=== PATIENT | female | born 1945 | race Caucasian/White ===

== ENCOUNTER → 2018-06-22 07:20 | Outpatient (CLI) | payer MEDICARE, OTHER, SELFPAY ==
[2018-06-22 14:03] LABS: Hemoglobin A1C 6.5 % (0.0-7.0)
[2018-06-22 14:13] LABS: Alanine Aminotransferase 28 U/L (12-78); Albumin/Globulin Ratio 1.1 (1.1-1.8); Alkaline Phosphatase 97 U/L (46-116); Aspartate Amino Transferase 18 U/L (15-37); Bilirubin,Total 0.4 mg/dL (0.2-1.0); Blood Urea Nitrogen 39 mg/dL (7-18); Calcium 9.4 mg/dL (8.5-10.1); Carbon Dioxide 28 mmol/L (21.0-32.0); Chloride 100 mmol/L (98-107); Chol/HDL Ratio 3.2 (1-3.5); Cholesterol 156 mg/dL (140-200); Creatinine,Serum 1.25 mg/dL (0.55-1.02); Estimated Glomerular Filt Rate 42 ml/min (>60); GFR (African American) 51 ML/MIN (>60); Globulin 3.6 gm/dl (1.3-3.2); Glucose 145 mg/dL (74-106); HDL Cholesterol 49 mg/dL (29-89); LDL Cholesterol 78 mg/dL (0-130); Sodium 139 mmol/L (136-145); Total Protein,Serum 7.6 gm/dL (6.4-8.2); Triglycerides 144 mg/dL (30-200); VLDL Cholesterol 29 mg/dL (0-40)
== END ==
PROVIDERS: PCP Internal Medicine Adolescent Medicine; Visit Provider Internal Medicine Adolescent Medicine
DX: E11.9 Type 2 diabetes mellitus without complications (principal); E78.5 Hyperlipidemia, unspecified
CPT/HCPCS: 36415; 80053; 80061; 83036

== ENCOUNTER 2018-09-10 22:11 | Observation (INO) ==
--- NOTE | 2018-09-10 22:58 | Emergency Department Note ---
ED Disposition Clinical Impression: Fracture dislocation of left ankle joint Qualifiers: Encounter type: initial encounter Fracture type: closed Qualified Code(s): S82.892A - Other fracture of left lower leg, initial encounter for closed fracture Disposition: Admitted as Observation Condition on Discharge: Good - Critical Care Critical Care Time: No Attestation: On 09/10/18, the high probability of a clinically significant, sudden or life threatening deterioration of the following system(s) required my full and direct attention, intervention and personal management. The time I documented below is in addition to time spent performing reported procedures but includes the following listed in this critical care notation. Medical Decision Making - [place]ilo Inquiry Pt receiving controlled substance: No Vital Signs: 09/10/18 22:28 09/10/18 22:49 Temperature 97.7 F Temperature Source Oral Pulse Rate [Right] 105 H 70 Respiratory Rate 18 12 Blood Pressure [Right Arm] 163/91 H 158/84 H Blood Pressure Mean [Right Arm] 115 108 Blood Pressure Source [Right Arm] Automatic Cuff Automatic Cuff Blood Pressure Position [Right Arm] Supine Supine 02 Sat by Pulse Oximetry 100 100 Oxygen Delivery Method Room Air Nasal Cannula Oxygen Flow Rate (LPM) 2 Orders (Tests/Meds): ED MEDICATIONS Discontinued Medications Generic Name Dose Route Start Last Admin Trade Name Freq PRN Reason Stop Dose Admin Fentanyl Citrate 25 mcg 09/10/18 22:27 09/10/18 22:28 Fentanyl 100mcg/2ml Vial IV 09/10/18 22:28 25 mcg ONCE ONE Administration Midazolam HCl 2 mg 09/10/18 22:27 09/10/18 22:28 Midazolam 2mg/2ml Vial IV 09/10/18 22:28 2 mg ONCE ONE Administration ORDERS Category Date Time Status Pelvis XR 1-2 views [XR pelvis 1-2V] Stat Exams 09/10/18 22:21 Taken XR ankle LT 2V Stat Exams 09/10/18 22:17 Taken XR ankle LT 2V Stat Exams 09/10/18 22:22 Taken XR chest portable Stat Exams 09/10/18 22:21 Taken Complete Blood Count Auto Diff Stat Lab 09/10/18 22:26 Ordered Comprehensive Metabolic Panel Stat Lab 09/10/18 22:26 Ordered - Radiology Data #1 Image(s): Chest, Pelvis, Ankle Image Reviewed: Yes I reviewed the patient's radiology image Preliminary Findings: Abnormal (fx/dislocation) - ECG Data Tracing #1 Normal Sinus Rhythm: Yes Ischemic changes: non-specific ST-T wave changes - Physician Consults Physician Consulted: noe Reason -: Admission Additional Consult: zain Reason -: Pt condition, Orthopedic Eval/Care Lower Extremity Injury HPI - General Chief Complaint: Extremity Injury, Lower Stated Complaint: Fall w/ left ankle injury Time Seen by Provider: 09/10/18 22:30 Mode of Arrival: EMS Source of Information: Patient, Spouse, Relative, EMS, Medical Record Limitations: Physical Limitations Description of Symptoms (Recalled from ER Triage Doc. by RN): Pt states she fell off last step and rolled left ankle - History of Present Illness HPI Narrative: acute injury lt ankle after missed last step on basement - no other c/o MD complaint: ankle injury Onset (ago): hour(s) Injury: Left: ankle Type of Injury: other (fall) Place: home Severity: moderate Exacerbating factors: nothing Context: fall Associated symptoms: snap/pop sensation, unable to bear weight Other symptoms: none Treatments prior to arrival: splint - Related Data Allergies Allergy/AdvReac Type Severity Reaction Status Date / Time No Known Allergies Allergy Verified 09/10/18 22:16 [facility] History - Hepatitis A Screen Drug use history?: No High risk sexual behaviors?: No History of sexually transmitted infection?: No Currently employed?: No Childcare worker?: No Do you have indoor plumbing?: Yes Do you have electricity?: Yes Attestation statement:: This patient has been screened for Hepatitis A risk factors. I have reviewed the patient's past medical history: Yes Medical History: Denies:: Diabetes Mellitus Type 1, Diabetes Mellitus Type 2 - Social History Alcohol Intake: never Occupational Status: retired - Psychiatric History Expresses thoughts of harming self/others: None Suicide Plan Description: No Plan ROS Obtained: Yes All systems reviewed & no additional complaints - Constitutional Constitutional: Denies fever(s) - Eyes Eyes: Denies change in vision - ENT Ears, Nose, Mouth, and Throat: Denies sore throat - Cardiovascular Cardiovascular: Denies chest pain - Respiratory Respiratory: No cough - Gastrointestinal Gastrointestingal: Denies: abdominal pain - Genitourinary Female Genitourinary: Denies hematuria - Musculoskeletal Musculoskeletal: Reports as per HPI, Reports joint pain, Reports joint swelling, Reports limited range of motion, Denies neck pain - Integumentary/Breasts Skin/Breast: Denies rash - Neurologic Neurologic: Denies seizure-like activity Physical Exam - General General appearance: alert, in no apparent distress - Head Head exam: normocephalic - Eye Eye exam: Present: PERRL, EOMI - ENT ENT exam: Present: mucous membranes moist - Neck Neck exam: Present: trachea midline - Respiratory Respiratory exam: Present: normal lung sounds bilaterally - Cardiovascular Cardiovascular exam: Present: regular rate, systolic murmur - Abdominal Exam Abdominal exam: Present: soft. Absent: tenderness - Expanded Lower Extremity Exam Left Ankle exam: Present: tenderness, swelling, deformity, dislocation. Absent: full ROM Neurovascular/Tendon exam: Present: normal capillary refill. Absent: pulse deficit - Neurological Exam Neurological exam: Present: alert, oriented X3, CN II-XII intact - Psychiatric Psychiatric exam: Present: normal affect - Skin Skin exam: Absent: rash Procedures - Orthopedic Joint Reduction Joint #1 Time Out Performed: Yes Side: left Joint Reduction Location: ankle Analgesia: procedural sedation Technique used: traction/counter-traction Post-reduction neuro exam: intact Post-reduction vascular: intact Post Reduction X-Ray Obtained: Yes Post Reduction X-Ray Results: reduced Splint Applied: Yes Patient Tolerated Procedure: well - Procedural Sedation ASA Class: II Time of Last PO Intake: 18:00 Preparation: inspector electromechanical applied, pulse oximeter, supplemental O2 applied, suction/airway equipment at bedside, IV secured Fentanyl: IV Fentanyl dose (mcg): 25 Midazolam: IV Midazolam dose (mg): 2 Patient Tolerated Procedure: well Complications: none
[2018-09-10 23:38] LABS: Basophils # 0.1 K/mm3 (0-0.2); Basophils % 0.5 % (0.1-2.0); Eosinophils # 0.1 K/mm3 (0.0-0.4); Eosinophils % 0.8 % (0.1-12.0); Hematocrit 37.5 % (37.0-47.0); Hemoglobin 12.6 g/dL (12.2-16.2); Lymphocytes # 1.4 K/mm3 (0.7-4.5); Lymphocytes % 13.7 % (10-50); Mean Corpuscular HGB Conc 33.5 g/dL (31.8-35.4); Mean Corpuscular Hemoglobin 30.7 pg (27.0-31.2); Mean Corpuscular Volume 91.6 fl (81-99); Mean Platelet Volume 7.1 fl (7.4-10.4); Monocytes # 0.5 K/mm3 (0.1-1.0); Monocytes % 4.6 % (1.7-9.3); Neutrophils # 8.5 K/mm3 (1.8-7.8); Neutrophils % 80.4 % (37.0-80.0); Platelet Count 254 K/mm3 (142-424); White Blood Count 10.6 K/mm3 (4.8-10.8)
[2018-09-10 23:52] LABS: Albumin Level 3.8 gm/dL (3.4-5.0); Albumin/Globulin Ratio 1.1 (1.1-1.8); Anion Gap 13.1 mEq/L (5-15); Bilirubin,Total 0.4 mg/dL (0.2-1.0); Calcium 8.6 mg/dL (8.5-10.1); Globulin 3.6 gm/dl (1.3-3.2); Potassium 4.1 mmoL/L (3.5-5.1); Total Protein,Serum 7.4 gm/dL (6.4-8.2)
[2018-09-10 23:55] LABS: Activated Partial Thrombo Time 24.7 seconds (23.6-34.0); INR 1.01 (0.9-1.1); Prothrombin Time 10.4 seconds (9.4-11.8)
--- NOTE | 2018-09-11 09:02 | History & Physical Report ---
*Admission Date: 09/10/18 *Chief complaint: Fall at home with left ankle fracture *History of present illness: 73-year-old white female with multiple medical problems including osteoporosis, kyphosis and others detailed in her past medical history who was carrying groceries downstairs last night after coming in from the car and slipped on the lower step of her basement steps and fell. She was unable to bear weight on the left ankle, brought to the emergency department and work-up revealed significant left ankle/distal tib-fib fracture. Please see orthopedic notes for details of this. Patient admitted for pain control, orthopedic evaluation and planned surgical procedure. In addition, patient was noted to have orthostatic blood pressure changes in the ER and on second floor with systolic blood pressure ranging from 130 down to 105 on repetitive exams. [facility] History I have reviewed the patient's past medical history: Yes Medical History: Reports:: Cancer (LEFT BREAST CANCER), Hyperlipidemia, Hypertension Denies:: Diabetes Mellitus Type 1, Diabetes Mellitus Type 2, MRSA *Have you ever received a pneumonia vaccine?: Yes *Have you received a flu vaccine this season?: Yes Other Medical History: Reports: Chemotherapy, Sinus Problems Laterality Cases: Left: Lumpectomy Other Surgeries: Yes: Colonoscopy, Hysterectomy-Total Amputation: No Fractures: No - *Social History Educational Level: Attended College Alcohol Intake: never *Occupational Status:: retired Housing: house Household Members: spouse *Travel in the last 8 weeks: None - Psychiatric History Expresses thoughts of harming self/others: None Suicide Plan Description: No Plan Family Hx:: Cancer Review of Systems - Review of Systems Review of systems:: pertinent systems reviewed and negative unless documented below - Constitutional Denies anorexia, Denies body ache(s) - Eyes Denies blind spots, Denies blurry vision - ENT Reports poor balance, Reports dizziness, Denies abnormal hearing - *Cardiovascular Denies chest pain, Denies chest pain at rest, Denies shortness of breath, Denies irregular heart rhythm - *Respiratory Denies change in phlegm color, Denies chest congestion, Denies shortness of breath with activity - *Gastrointestinal Denies abdominal pain, Denies change in stools, Denies coffee ground vomit - *Musculoskeletal Reports abnormal walking, Reports joint pain, Reports back pain, Denies decreased muscle mass - Integumentary/Breasts Denies acne, Denies hair loss - *Neurologic Reports abnormal walking, Denies seizure-like activity Meds Home Medications Medication Instructions Recorded Confirmed Type Duloxetine HCl [Cymbalta] 60 mg PO DAILY 09/10/18 09/11/18 History Lisinopril/Hydrochlorothiazide 1 tab PO DAILY 09/10/18 09/11/18 History [Lisinopril-Hctz 10-12.5 mg Tab] Meloxicam 15 mg PO DAILY 09/10/18 09/11/18 History Metformin HCl [Glucophage Xr] 500 mg PO DAILY 09/10/18 09/11/18 History Pravastatin Sodium [Pravachol] 20 mg PO DAILY 09/10/18 09/11/18 History Omeprazole [Omeprazole 20mg Tab] 20 mg PO DAILY 09/11/18 09/11/18 History Allergies Allergy/AdvReac Type Severity Reaction Status Date / Time No Known Allergies Allergy Verified 09/10/18 22:16 Exam Vital signs and Labs for Last 24 Hours: Temp Pulse Resp BP Pulse Ox 97.5 F L 90 16 107/57 L 94 L 09/11/18 08:00 09/11/18 08:00 09/11/18 08:00 09/11/18 08:00 09/11/18 08:00 Laboratory Results - last 24 hr 09/10/18 23:30: WBC 10.6, RBC 4.10 L, Hgb 12.6, Hct 37.5, MCV 91.6, MCH 30.7, MCHC 33.5, RDW 13.0, Plt Count 254, MPV 7.1 L, Neut % (Auto) 80.4 H, Lymph % (Auto) 13.7, [place] % (Auto) 4.6, Eos % (Auto) 0.8, Baso % (Auto) 0.5, Neut # (Auto) 8.5 H, Lymph # (Auto) 1.4, [place] # (Auto) 0.5, Eos # (Auto) 0.1, Baso # (Auto) 0.1 09/10/18 23:30: Sodium 137, Potassium 4.1, Chloride 101, Carbon Dioxide 27, Anion Gap 13.1, BUN 46 H, Creatinine 1.24 H, Estimated Creat Clear 44, Estimated GFR 42 L, Est GFR ( Amer) 51 L, Glucose 123 H, Calcium 8.6, Total Bilirubin 0.4, AST 19, ALT 31, Alkaline Phosphatase 102, Total Protein 7.4, Albumin 3.8, Globulin 3.6 H, Albumin/Globulin Ratio 1.1 09/10/18 23:30: PT 10.4, INR 1.01, APTT 24.7 09/11/18 06:15: POC Glucose 128 H I & O for Last 24 hours: Intake & Output 09/08/18 09/09/18 09/10/18 09/11/18 11:59 11:59 11:59 11:59 Intake Total 251 / 251 Balance 251 / 251 Weight 154 lb Narrative: Pleasant, talkative. Oropharynx clear. Slightly dry. Neurologic exam intact. Patient is alert. Anterior lung mendoza clear, heart rate regular. Abdomen soft and nontender. No edema and extremities except for the left lower extremity which is in a splint. Please see orthopedic exam for details. Assessment and Plan (1) Orthostatic hypotension Current visit: Yes Status: Acute Category: Medical Code(s): I95.1 - Orthostatic hypotension Follow closely. IV fluids. Significant comorbid condition. (2) History of breast cancer Current visit: Yes Status: Acute Category: Medical Code(s): Z85.3 - Personal history of malignant neoplasm of breast Has been disease-free for a while. However this condition complicates all aspects of her care (3) Fracture dislocation of left ankle joint Current visit: Yes Status: Acute Qualifiers: Encounter type: initial encounter Fracture type: closed Qualified Code(s): S82.892A - Other fracture of left lower leg, initial encounter for closed fracture Category: Medical Code(s): S82.892A - Other fracture of left lower leg, initial encounter for closed fracture Orthopedic evaluation. Plan for ORIF today if suitable. (4) Hypertension, essential Current visit: Yes Status: Acute Category: Medical Code(s): I10 - Essential (primary) hypertension (5) Diabetes mellitus type 2, noninsulin dependent Current visit: Yes Status: Acute Category: Medical Code(s): E11.9 - Type 2 diabetes mellitus without complications Close observation in hospital. Complicates her care.
--- NOTE | 2018-09-11 09:27 | Consult Report ---
*Admission Date: 09/10/18 *Chief complaint: Left ankle fracture *History of present illness: Mrs. Askew is a very pleasant 73-year-old lady who sustained an injury to her left ankle last night. She was bringing groceries down the stairs into her basement to place in the deep freeze, when she accidentally missed the bottom stair and rolled her left ankle and fell to the ground. She had immediate pain, deformity and swelling and was unable to bear weight on this leg. She was seen immediately in the emergency room at [facility], where a fracturedislocation was identified and promptly reduced under sedation by ER staff. I was then notified by the ER physician about the patient's injury and that, while the reduction improved the alignment of the ankle, it was a very unstable fracture and prompt fixation may be warranted. The patient has a past medical history of breast cancer, hypertension and hyperlipidemia. She has had an elevated creatinine and elevated blood glucose since admission, with an episode of orthostasis as well. She lives at home with her , who is a few years older than her, and while independently ambulatory, he has significant kyphosis and memory issues, so support may be difficult after discharge. She reports pain in the L ankle currently, but no numbness or tingling in the toes. No LOC reported during the fall, and no pain is reported in any other joint or body part. Denies chest pain, shortness of breath, abdominal pain. Review of Systems - Review of Systems Review of systems:: pertinent systems reviewed and negative unless documented below - *Neurologic Reports abnormal walking, Reports unsteadiness, Reports dizziness, Denies abnormal hearing, Denies seizure-like activity [facility] History I have reviewed the patient's past medical history: Yes Medical History: Reports:: Cancer (LEFT BREAST CANCER), Hyperlipidemia, Hypertension Denies:: Diabetes Mellitus Type 1, Diabetes Mellitus Type 2, MRSA *Have you ever received a pneumonia vaccine?: Yes *Have you received a flu vaccine this season?: Yes Other Medical History: Reports: Chemotherapy, Sinus Problems Laterality Cases: Left: Lumpectomy Other Surgeries: Yes: Colonoscopy, Hysterectomy-Total Amputation: No Fractures: No - *Social History Educational Level: Attended College Alcohol Intake: never *Occupational Status:: retired Housing: house Household Members: spouse *Travel in the last 8 weeks: None - Psychiatric History Expresses thoughts of harming self/others: None Suicide Plan Description: No Plan Family Hx:: Cancer Meds Home Medications Medication Instructions Recorded Confirmed Type Duloxetine HCl [Cymbalta] 60 mg PO DAILY 09/10/18 09/11/18 History Lisinopril/Hydrochlorothiazide 1 tab PO DAILY 09/10/18 09/11/18 History [Lisinopril-Hctz 10-12.5 mg Tab] Meloxicam 15 mg PO DAILY 09/10/18 09/11/18 History Metformin HCl [Glucophage Xr] 500 mg PO DAILY 09/10/18 09/11/18 History Pravastatin Sodium [Pravachol] 20 mg PO DAILY 09/10/18 09/11/18 History Omeprazole [Omeprazole 20mg Tab] 20 mg PO DAILY 09/11/18 09/11/18 History Allergies Allergy/AdvReac Type Severity Reaction Status Date / Time No Known Allergies Allergy Verified 09/10/18 22:16 Exam Vital signs and Labs for Last 24 Hours: Temp Pulse Resp BP Pulse Ox 97.5 F L 90 16 107/57 L 94 L 09/11/18 08:00 09/11/18 08:00 09/11/18 08:00 09/11/18 08:00 09/11/18 08:00 Laboratory Results - last 24 hr 09/10/18 23:30: WBC 10.6, RBC 4.10 L, Hgb 12.6, Hct 37.5, MCV 91.6, MCH 30.7, MCHC 33.5, RDW 13.0, Plt Count 254, MPV 7.1 L, Neut % (Auto) 80.4 H, Lymph % (Auto) 13.7, [place] % (Auto) 4.6, Eos % (Auto) 0.8, Baso % (Auto) 0.5, Neut # (Auto) 8.5 H, Lymph # (Auto) 1.4, [place] # (Auto) 0.5, Eos # (Auto) 0.1, Baso # (Auto) 0.1 09/10/18 23:30: Sodium 137, Potassium 4.1, Chloride 101, Carbon Dioxide 27, Anion Gap 13.1, BUN 46 H, Creatinine 1.24 H, Estimated Creat Clear 44, Estimated GFR 42 L, Est GFR ( Amer) 51 L, Glucose 123 H, Calcium 8.6, Total Bilirubin 0.4, AST 19, ALT 31, Alkaline Phosphatase 102, Total Protein 7.4, Albumin 3.8, Globulin 3.6 H, Albumin/Globulin Ratio 1.1 09/10/18 23:30: PT 10.4, INR 1.01, APTT 24.7 09/11/18 06:15: POC Glucose 128 H I & O for Last 24 hours: Intake & Output 09/08/18 09/09/18 09/10/18 09/11/18 11:59 11:59 11:59 11:59 Intake Total 251 / 251 Balance 251 / 251 Weight 154 lb - Constitutional no acute distress, average body habitus - *Routine HEENT Exam Head: Present: normocephalic Eye: Present: EOMI ENT: Present: mucous membranes moist - *Routine Respiratory Exam Present: CTA bilaterally. Absent: accessory muscle use, wheezes, crackles - *Routine Cardiovascular Exam Present: RRR - *Routine Abdominal Exam Present: soft. Absent: tenderness, distended - *Routine Extremities Exam Comments: L ankle splinted, well-padded and intact; elevated on 3 pillows exposed toes pink, warm with brisk capillary refill no tenderness L calf, no pain L knee with full ROM SILT distally across all toes able to wiggle all toes, EHL intact - *Routine Skin Exam Present: intact. Absent: erythema, ecchymosis - *Routine Neurological Exam Present: alert, oriented X3. Absent: sensory deficit, motor deficit, altered mental status Results - Labs Result Diagrams: 09/10/18 23:30 09/10/18 23:30 Labs: Abnormal lab results 09/10/18 09/10/18 09/11/18 Range/Units 23:30 23:30 06:15 RBC 4.10 L (4.20-5.40) M/mm3 MPV 7.1 L (7.4-10.4) fl Neut % (Auto) 80.4 H (37.0-80.0) % Neut # (Auto) 8.5 H (1.8-7.8) K/mm3 BUN 46 H (7-18) mg/dL Creatinine 1.24 H (0.55-1.02) mg/dL Estimated GFR 42 L (>60) ml/min Est GFR ( Amer) 51 L (>60) ML/MIN Glucose 123 H (74-106) mg/dL POC Glucose 128 H (70-110) Globulin 3.6 H (1.3-3.2) gm/dl H & H 09/10/18 Range/Units 23:30 Hgb 12.6 (12.2-16.2) g/dL Hct 37.5 (37.0-47.0) % Coagulation 09/10/18 Range/Units 23:30 INR 1.01 (0.9-1.1) All other labs normal. - Diagnostic results Ankle/Foot x-ray: image reviewed (bimalleolar fracture-dislocation L ankle; reduced by ER, alignment improved on post-reduction films but talus not well- centered within mortise, remains malreduced ) Assessment and Plan (1) Orthostatic hypotension Current visit: Yes Status: Acute Category: Medical Code(s): I95.1 - Orthostatic hypotension (2) History of breast cancer Current visit: Yes Status: Acute Category: Medical Code(s): Z85.3 - Personal history of malignant neoplasm of breast (3) Fracture dislocation of left ankle joint Current visit: Yes Status: Acute Qualifiers: Encounter type: initial encounter Fracture type: closed Qualified Code(s ): S82.892A - Other fracture of left lower leg, initial encounter for closed fracture Category: Medical Code(s): S82.892A - Other fracture of left lower leg, initial encounter for closed fracture (4) Hypertension, essential Current visit: Yes Status: Acute Category: Medical Code(s): I10 - Essential (primary) hypertension (5) Diabetes mellitus type 2, noninsulin dependent Current visit: Yes Status: Acute Category: Medical Code(s): E11.9 - Type 2 diabetes mellitus without complications - Assessment and plan all Dx Assessment and Plan for all problems:: 73yo F with L ankle fracture-dislocation, reduced by ER staff last night -- plan to take patient to OR this morning, where splint will be removed. If soft tissues allow, will plan ORIF. If too swollen and/or ecchymosis present over location of planned incisions, will performed closed reduction under fluoroscopy and apply well-padded splint, with plans to fix in 5-7 days. -- the procedure (both options) was discussed with the patient, her , and her daughter; all vocalized understanding -- 1g ancef ordered strength and conditioning coach to OR in anticipation of ORIF -- will keep patient in-house afterwards regardless, for PT and dispo planning -- patient was seen in conjunction with Dr. Kemp
--- NOTE | 2018-09-11 10:45 | Progress Note ---
[facility] Anesthesia Checklist - Structural Data Admitted From: Inpatient Planned Operative Procedure/s: orif l ankle Consent for Planned Operative Procedure(s) Verified: Yes - Airway Assessment C-Spine Mobility Assessed: Yes TMJ Mobility Assessed: Yes Dentition: Good Dentition - Neurological Assessment Level of Consciousness: Awake, Alert, Appropriate - Anesthesia Plan Anesthesia Risk discussed: Yes Anesthesia Plan: Verified ASA Class: II Anesthesia Type: General [facility] History I have reviewed the patient's past medical history: Yes Medical History: Reports:: Cancer (LEFT BREAST CANCER), Hyperlipidemia, Hypertension Denies:: Diabetes Mellitus Type 1, Diabetes Mellitus Type 2, MRSA *Have you ever received a pneumonia vaccine?: Yes *Have you received a flu vaccine this season?: Yes Other Medical History: Reports: Chemotherapy, Sinus Problems Laterality Cases: Left: Lumpectomy Other Surgeries: Yes: Colonoscopy, Hysterectomy-Total Amputation: No Fractures: No - *Social History Educational Level: Attended College Alcohol Intake: never *Occupational Status:: retired Housing: house Household Members: spouse *Travel in the last 8 weeks: None - Psychiatric History Expresses thoughts of harming self/others: None Suicide Plan Description: No Plan Family Hx:: Cancer
--- NOTE | 2018-09-11 10:45 | Progress Note ---
[facility] Anesthesia Record Part I Intake, IV Amount: 400 Estimated blood loss (mL): 0 Urine output (mL): 50 Blood Pressure: 138/71 SaO2: 96 Pulse Rate: 84 Respiratory Rate: 12 Temperature: 98.9 F Patient is:: Awake, Stable Stable to PACU at:: 10:40
--- NOTE | 2018-09-11 10:46 | Progress Note ---
[facility] Anesthesia Record Part II Discharge Time: 11:10 Destination: floor PACU nurse assessment reviewed?: Yes Patient Condition:: Good Anesthesia Complications:: None Swallowing reflex intact?: Yes Cyanosis?: No
--- NOTE | 2018-09-11 10:54 | Operative Note ---
Date of procedure: 09/11/18 Pre-op Diagnosis:: L ankle bimalleolar fracture Post-op Diagnosis:: L ankle bimalleolar fracture Procedure performed:: closed reduction and splinting L ankle fracture Surgeon:: Leslee Kohler MD Courier(s):: Cici Lima CST SEATER ASSEMBLER:: Joseph Gutierrez Anesthesia: GETA Estimated blood loss (mL): 0 Clinical Note:: 73-year-old F who sustained an injury to her left ankle last night. She was bringing groceries down the stairs into her basement to place in the deep freeze, when she accidentally missed the bottom stair and rolled her left ankle and fell to the ground. She had immediate pain, deformity and swelling and was unable to bear weight on this leg. She was seen immediately in the emergency room at [facility], where a fracturedislocation was identified and promptly reduced under sedation by ER staff. I was then notified by the ER physician about the patient's injury and that, while the reduction improved the alignment of the ankle, it was a very unstable fracture and prompt fixation may be warranted. The patient has a past medical history of breast cancer, hypertension and hyperlipidemia. She has had an elevated creatinine and elevated blood glucose since admission, with an episode of orthostasis as well. She lives at home with her , who is a few years older than her, and while independently ambulatory, he has significant kyphosis and memory issues, so support may be difficult after discharge. She reports pain in the L ankle currently, but no numbness or tingling in the toes. No LOC reported during the fall, and no pain is reported in any other joint or body part. Denies chest pain, shortness of breath, abdominal pain. Operative findings:: Mild ecchymosis medially, would be safe from planned incision; small blister laterally/distally Urine very hazy/cloudy, almost purulent appearing when juares inserted Operative note:: The patient was identified in pre-operative holding and the left leg signed by myself. Consent was verified with the patient and all questions answered. She was then taken to the operating room and placed supine on the OR table. General anesthesia was induced and timeout performed, identifying the correct patient, correct procedure, and correct site. The splint was removed from the LLE and skin examined. There was a small area of ecchymosis over the anteromedial ankle, that would likely avoid the planned incision line. A small blister was seen laterally/distally, at the distal edge of the planned lateral incision. Overall, soft tissue swelling was minimal and ORIF possible. However, a juares was placed for the procedure, and the urine that was returned was extremely hazy/opaque, almost purulent appearing. The decision was made to hold off on ORIF so as not to risk seeding hardware. The c-arm was brought in and closed reduction performed; a well-padded plaster splint was p laced, with a posterior splint + stirrup. The patient was extubated and taken to PACU, where blood cultures were taken x2. The urine from the juares was sent for stat UA and culture. After discussion with the patient's daughter, we decided to remove the juares; she has been doing well with a bedpan, though output has been low, and she would prefer not exacerbating/increasing the infection with an in dwelling catheter. Juares was removed in PACU. I discussed her case with Dr. Kemp, and we have agreed to start her on ceftriaxone 1g q24hr, to be started after blood cultures drawn. The L ankle will be elevated and we will try to fix the fracture Wednesday09/13/2018 if possible. Tourniquet time (min): 0 Condition: stable Disposition: PACU Specimens:: none Complications:: none
[2018-09-11 11:31] LABS: Appearance,Urine TURBID (Clear); Bilirubin,Urine Negative (Negative); Blood, Urine 3+ (Negative); Color,Urine YELLOW (Yellow); Glucose,Urine (UA) Negative (Negative); Ketones,Urine TRACE (Negative); Leukocyte Esterase,Urine 3+ (Negative); Microscopic, Urine URINE MICROSCOPIC (MICROSCOPIC); Protein,Urine 2+ (Negative); Specific Gravity, Urine >= 1.030 (1.005-1.030); Urobilinogen,Urine 0.2 EU/dl (0.2)
[2018-09-11 11:32] LABS: Bacteria,Urine 4+ /lpf; RBC,Urine TNTC #/hpf (0-3); Squamous Epithelial Cell,Urine TNTC #/hpf (0-5); WBC,Urine TNTC #/hpf (0-3)
--- NOTE | 2018-09-11 11:33 | Pharmacy Consult Notes ---
[facility] Pharmacy VTE Monitoring - Patient Demographics Admission date: 09/10/18 Report Date: 09/11/18 Time: 11:33 Allergies/Adverse Reactions: Patient Allergies No Known Allergies Allergy (Verified 09/10/18 22:16) Height: 1.63 m Weight: 69.853 kg Patient Problems: Current Active Problems (Updated 09/11/18 @ 09:06 by Jacky Kemp MD) Fracture dislocation of left ankle joint (Acute) Orthostatic hypotension (Acute) History of breast cancer (Acute) Hypertension, essential (Acute) Diabetes mellitus type 2, noninsulin dependent (Acute) - VTE Risk Labs: VTE Related Lab Results Hgb 12.6 g/dL (12.2-16.2) 09/10/18 23:30 Hct 37.5 % (37.0-47.0) 09/10/18 23:30 Plt Count 254 K/mm3 (142-424) 09/10/18 23:30 PT 10.4 seconds (9.4-11.8) 09/10/18 23:30 INR 1.01 (0.9-1.1) 09/10/18 23:30 APTT 24.7 seconds (23.6-34.0) 09/10/18 23:30 BUN 46 mg/dL (7-18) H 09/10/18 23:30 Creatinine 1.24 mg/dL (0.55-1.02) H 09/10/18 23:30 Estimated Creat Clear 44 mL/min (50-200) 09/10/18 23:30 VTE Score: 4 VTE Risk Level: Low Risk - Prophylaxis VTE Prophylaxis Ordered?: Yes Types of VTE Prophylaxis: IPCS Thigh High (ON UN-INJURED LEG ONLY) Location of Applied Device: Right Leg
--- NOTE | 2018-09-12 08:49 | Progress Note ---
Internal Medicine - PN: Subj *Date: 09/12/18 *Time: 08:45 Interval history: Events of yesterday noted. Patient went to the OR for possible ORIF of fracture but urinalysis and urine were noted to be markedly abnormal. Ankle was reduced under fluoroscopy and good reduction was obtained per orth opedics. Patient now on antibiotics. She continues to deny urinary symptoms of any kind, denies fever. Reports that she feels okay except "my breakfast does not have enough sugar in it." Exam Vital signs and Labs for Last 24 Hours: Temp Pulse Resp BP Pulse Ox 98.4 F 96 H 17 141/73 H 96 09/12/18 04:00 09/12/18 04:00 09/12/18 04:00 09/12/18 04:00 09/12/18 04:00 Laboratory Results - last 24 hr 09/11/18 10:57: Urine Color Yellow, Urine Appearance Turbid, Urine pH 6.0, Ur Specific [place] >= 1.030, Urine Protein 2+, Urine Glucose (UA) Negative, Urine Ketones Trace, Urine Blood 3+, Urine Nitrate Positive, Urine Bilirubin Negative, Urine Urobilinogen 0.2, Ur Leukocyte Esterase 3+ A, Urine RBC Tntc, Urine WBC Tntc, Ur Squamous Epith Cells Tntc, Urine Bacteria 4+ 09/11/18 16:01: POC Glucose 139 H 09/11/18 21:50: POC Glucose 129 H 09/12/18 06:25: POC Glucose 139 H I & O for Last 24 hours: Intake & Output 09/09/18 09/10/18 09/11/18 09/12/18 11:59 11:59 11:59 11:59 Intake Total 651 / 651 1472 / 1472 Output Total 50 / 50 750 / 750 Balance 601 / 601 722 / 722 Weight 154 lb Microbiology Reports for the Last 24 Hours: Microbiology 09/11/18 10:57 Urine,Catheterized Urine Culture - Preliminary Gram Negative Rods Narrative: Patient is awake, alert. Pleasant. Talkative. Anterior lung mendoza are clear. Abdomen soft, heart rate regular. Left ankle in hard to splint, toes are warm and well-perfused. Assessment and Plan (1) Orthostatic hypotension Current visit: Yes Status: Acute Category: Medical Code(s): I95.1 - Orth ostatic hypotension (2) History of breast cancer Current visit: Yes Status: Acute Category: Medical Code(s): Z85.3 - Personal history of malignant neoplasm of breast (3) Fracture dislocation of left ankle joint Current visit: Yes Status: Acute Qualifiers: Encounter type: initial encounter Fracture type: closed Qualified Code(s): S82.892A - Other fracture of left lower leg, initial encounter for closed fracture Category: Medical Code(s): S82.892A - Other fracture of left lower leg, initial encounter for closed fracture Pain control adequate. Start stool softener. (4) Hypertension, essential Current visit: Yes Status: Acute Category: Medical Code(s): I10 - Essential (primary) hypertension (5) Diabetes mellitus type 2, noninsulin dependent Current visit: Yes Status: Acute Category: Medical Code(s): E11.9 - Type 2 diabetes mellitus without complications (6) UTI (urinary tract infection) Current visit: Yes Status: Acute Category: Medical Code(s): N39.0 - Urinary tract infection, site not specified Gram-negative rods on culture. Continue IV antibiotics. Hold off on any kind of surgical implantation of hardware until blood cultures negative. PT evaluation today.
--- NOTE | 2018-09-12 16:33 | Progress Note ---
Subjective Date: 09/12/18 Time: 12:00 Principal diagnosis: L ankle fracture Interval history: The patient was seen around noon today and was doing well at that time. She reports very little pain in the left ankle and has not taken pain medication since last night. She does not report any dysuria or foul smell with urination. No fevers or chills. She does endorse a history of painless hemorrhoids that are irreducible and consistently draining a milky discharge but nothing that she believes is purulent or bloody. No pain in the perianal/rectal area, no abdominal pain or recent change in stool frequency/consistency. PN: Obj Ex Vital signs: Temp Pulse Resp BP Pulse Ox 98.0 F 99 H 18 130/63 93 L 09/12/18 16:00 09/12/18 16:00 09/12/18 16:00 09/12/18 16:00 09/12/18 16:00 - Constitutional no acute distress, average body habitus, cooperative - Routine HEENT Exam Head: Present: normocephalic Eye: Present: EOMI ENT: Present: mucous membranes moist - Routine Respiratory Exam Present: CTA bilaterally. Absent: accessory muscle use, respiratory distress, rhonchi, wheezes - Routine Cardiovascular Exam Present: RRR - Routine Abdominal Exam Present: soft. Absent: tenderness - Routine Rectal Exam Patient deferred: visual exam, digital exam Visual: Present: normal rectal tone. Absent: tenderness, palpable mass Digital: Present: hemorrhoid. Absent: blood - Routine Exam Perineal: Absent: erythema, tenderness - Routine Extremities Exam Comments: LLE with ankle splinted; posterior slab + stirrup wiggles toes, which are warm/pink with SILT and BCR LLE no calf pain proximally LLE - Routine Neurological Exam Present: alert, oriented X3, moving all extremities, normal tone. Absent: sensory deficit, motor deficit, altered mental status - Routine Psychiatric Exam Present: normal affect Progress Note: A&P (1) Orthostatic hypotension Status: Acute Current Visit: Yes (2) History of breast cancer Status: Acute Current Visit: Yes (3) Fracture dislocation of left ankle joint Status: Acute Current Visit: Yes (4) Hypertension, essential Status: Acute Current Visit: Yes (5) Diabetes mellitus type 2, noninsulin dependent Status: Acute Current Visit: Yes (6) UTI (urinary tract infection) Status: Acute Current Visit: Yes Assessment and Plan for All Diagnoses:: 73yo F POD 1 s/p closed reduction of L ankle fracture; surgery delayed due to presence of what appeared to by pyuria on juares insertion, 4+ bacteria on U/A with GNR on prelim culture, speciation pending. Blood cultures x2 negative thus far. -- continue NWB LLE, up ad baljeet with walker -- elevate LLE frequently -- NPO after midnight; plan on OR tomorrow for ankle ORIF as long as blood cultures remain negative, will have been on ceftriaxone x48 hours
[2018-09-13 06:34] LABS: Basophils % 0.5 % (0.1-2.0); Eosinophils # 0.1 K/mm3 (0.0-0.4); Eosinophils % 1.7 % (0.1-12.0); Hematocrit 34.9 % (37.0-47.0); Hemoglobin 11.8 g/dL (12.2-16.2); Lymphocytes # 2.3 K/mm3 (0.7-4.5); Lymphocytes % 29.6 % (10-50); Mean Corpuscular Hemoglobin 31.3 pg (27.0-31.2); Mean Corpuscular Volume 92.2 fl (81-99); Mean Platelet Volume 7.3 fl (7.4-10.4); Monocytes # 0.6 K/mm3 (0.1-1.0); Monocytes % 7.4 % (1.7-9.3); Neutrophils # 4.6 K/mm3 (1.8-7.8); Neutrophils % 60.8 % (37.0-80.0); Platelet Count 238 K/mm3 (142-424); Red Blood Count 3.78 M/mm3 (4.20-5.40); Red Cell Distribution Width 13.1 % (11.5-17.5); White Blood Count 7.6 K/mm3 (4.8-10.8)
[2018-09-13 06:50] LABS: Anion Gap 11.4 mEq/L (5-15); Potassium 3.4 mmoL/L (3.5-5.1)
--- NOTE | 2018-09-13 07:52 | Progress Note ---
Internal Medicine - PN: Subj *Date: 09/13/18 *Time: 08:20 Interval history: Remained afebrile overnight. Blood cultures continue to remain negative at 36 hours. Patient was made n.p.o. in anticipation of likely ORIF today. Otherwise stable without any complaints this morning. No nausea, no vomiting, pain controlled. Exam Vital signs and Labs for Last 24 Hours: Temp Pulse Resp BP Pulse Ox 97.9 F 92 H 18 105/44 L 93 L 09/13/18 04:00 09/13/18 04:00 09/13/18 04:00 09/13/18 04:00 09/13/18 04:00 Laboratory Results - last 24 hr 09/12/18 11:56: POC Glucose 121 H 09/12/18 16:04: POC Glucose 116 H 09/12/18 20:47: POC Glucose 147 H 09/13/18 05:38: POC Glucose 113 H 09/13/18 05:45: WBC 7.6 D, RBC 3.78 L, Hgb 11.8 L, Hct 34.9 L, MCV 92.2, MCH 31.3 H, MCHC 34.0, RDW 13.1, Plt Count 238, MPV 7.3 L, Neut % (Auto) 60.8, Lymph % (Auto) 29.6, [place] % (Auto) 7.4, Eos % (Auto) 1.7, Baso % (Auto) 0.5, Neut # (Auto) 4.6, Lymph # (Auto) 2.3, [place] # (Auto) 0.6, Eos # (Auto) 0.1, Baso # (Auto) 0.0 09/13/18 05:45: Sodium 142, Potassium 3.4 L, Chloride 108 H, Carbon Dioxide 26, Anion Gap 11.4, BUN 21 H D, Creatinine 0.92 D, Estimated Creat Clear 56, Estimated GFR 60, Est GFR ( Amer) 72 D, Glucose 114 H, Calcium 8.0 L I & O for Last 24 hours: Intake & Output 09/10/18 09/11/18 09/12/18 09/13/18 23:59 23:59 23:59 23:59 Intake Total 1627 / 1627 1950 / 1948 560 / 560 Output Total 350 / 350 450 / 450 Balance 1277 / 1277 1498 / 1498 560 / 560 Weight 71.668 kg 69.853 kg 75.948 kg 72.603 kg Microbiology Reports for the Last 24 Hours: Microbiology 09/11/18 10:57 Urine,Catheterized Urine Culture - Final Escherichia coli Narrative: Patient is awake, alert. Supine in Bed, Pleasant. Talkative. Anterior lung mendoza are clear. Abdomen soft, heart rate regular. Left ankle in hard to splint, toes are warm and well-perfused. Neuro-vascularly intact in bilateral distal extremities. Assessment and Plan (1) Orthostatic hypotension Current visit: Yes Status: Acute Category: Medical Code(s): I95.1 - Orthostatic hypotension (2) History of breast cancer Current visit: Yes Status: Acute Category: Medical Code(s): Z85.3 - Personal history of malignant neoplasm of breast (3) Fracture dislocation of left ankle joint Current visit: Yes Status: Acute Qualifiers: Encounter type: initial encounter Fracture type: closed Qualified Code(s): S82.892A - Other fracture of left lower leg, initial encounter for closed fracture Category: Medical Code(s): S82.892A - Other fracture of left lower leg, initial encounter for closed fracture (4) Hypertension, essential Current visit: Yes Status: Acute Category: Medical Code(s): I10 - Essential (primary) hypertension (5) Diabetes mellitus type 2, noninsulin dependent Current visit: Yes Status: Acute Category: Medical Code(s): E11.9 - Type 2 diabetes mellitus without complications (6) UTI (urinary tract infection) Current visit: Yes Status: Acute Category: Medical Code(s): N39.0 - Urinary tract infection, site not specified - Assessment and plan all Dx Assessment and Plan for all problems:: plan for ORIF in Or this afternoon after verification of negative BC for 48hrs. Pain stable. Further management pending surgical intervention.
--- NOTE | 2018-09-13 20:16 | Progress Note ---
[facility] Anesthesia Record Part I Intake, IV Amount: 1,600 Estimated blood loss (mL): 25 Urine output (mL): 0 Blood Pressure: 120/55 SaO2: 97 Pulse Rate: 105 Respiratory Rate: 16 Temperature: 98.9 F Patient is:: Drowsy, Stable Stable to PACU at:: 09:55 Comments:: Per surgeon and pt request preoperatively, a popliteal/saphenous nerve block was performed in PACU upon awakening. Unable to do this preoperatively d/t uncertainty of the operation being performed until after the pt was asleep and wound/swelling was assessed. Risks benefits of the block were discussed with pt and family, and pt agrees to block. See paper anesthesia record for details of block.
--- NOTE | 2018-09-13 20:16 | Progress Note ---
Subjective Date: 09/13/18 Time: 20:00 Principal diagnosis: L ankle fracture Interval history: The patient underwent ORIF L ankle this evening without complications. She is resting well in PACU, vitals stable. Popliteal block administered by anesthesia in PACU post-operatively. PN: Obj Ex Vital signs: Temp Pulse Resp BP Pulse Ox 98.2 F 100 H 18 123/86 96 09/13/18 16:00 09/13/18 16:00 09/13/18 16:00 09/13/18 16:00 09/13/18 16:00 Narrative: patient is sleeping comfortably, vitals stable L leg with short posterior mold splint popliteal block in place, sensation diminished as a result toes warm, well-perfused Progress Note: A&P (1) Orthostatic hypotension Status: Acute Current Visit: Yes (2) History of breast cancer Status: Acute Current Visit: Yes (3) Fracture dislocation of left ankle joint Status: Acute Current Visit: Yes (4) Hypertension, essential Status: Acute Current Visit: Yes (5) Diabetes mellitus type 2, noninsulin dependent Status: Acute Current Visit: Yes (6) UTI (urinary tract infection) Status: Acute Current Visit: Yes Assessment and Plan for All Diagnoses:: 73yo F POD 0 s/p ORIF L ankle fx (trimalleolar fx; lateral plate on fibula, 2 cannulated screws medial mal, small posterior mal fx non-op, no syndesmotic injury suspected) -- NWB LLE, may be OOB as vanda with assist/RW -- continue PT/OT while in house -- recommend SNF if possible, patient will not be safe for d/c home unless staining machine operator present -- will continue 23hr surgical antbx prophy -- continue treating UTI per Drs. Kemp/Norma -- elevate LLE on at least 2-3 pillows when in bed
--- NOTE | 2018-09-13 20:17 | Progress Note ---
[facility] Anesthesia Record Part II Discharge Time: 20:25 Destination: 2nd floor PACU nurse assessment reviewed?: Yes Patient Condition:: Good Anesthesia Complications:: None Swallowing reflex intact?: Yes Cyanosis?: No
--- NOTE | 2018-09-13 22:31 | Operative Note ---
Date of procedure: 09/13/18 Pre-op Diagnosis:: L ankle fracture; bimalleolar fracture-dislocation Post-op Diagnosis:: L ankle fracture (trimalleolar) Procedure performed:: ORIF L ankle fracture Surgeon:: Leslee Kohler MD Cake Icer(s):: Cici Lima CST RING FACER:: Tello Basia Anesthesia: GETA, regional (popliteal block) Estimated blood loss (mL): 25 Clinical Note:: 73-year-old female who sustained a fracturedislocation to the left ankle on 09/10/2018. Closed reduction was performed in the emergency room but reduction w as less than desirable so she was taken to the operating room on 09/11/2018 where ORIF was planned, but delayed due to the presence of urinary tract infection. This was treated with ceftriaxone intravenously and blood cultures have been negative x48 hours. The patient has been asymptomatic, afebrile, with no leukocytosis. The decision was made to bring the patient back today for definitive fixation should soft tissues allow. I discussed the plan with the patient including the risks of surgery, which include bleeding, infection, neurovascular damage, nonunion, hardware failure, painful hardware, DVT/PE, and risks of anesthesia. The patient vocalized understanding and provided informed consent. Operative findings:: ORIF performed on bimalleolar fracture: distal fibula = plate/screws (bridge plate, locking) medial malleolus = 4.0 cannulated screws, partially threaded, with washer x2 also seen to have what is likely a small posterior malleolus fracture, <25% tibial diameter; will be treated non-operatively implants = geronimo variax ankle system (specifics in body of op note) Operative note:: Patient was identified in preoperative holding and the left ankle signed by myself. She was then taken to the operating room and placed supine on the OR table. IV antibiotics were given and general anesthesia induced. Once the patient was asleep, the splint was removed from the left ankle and soft tissues appeared amenable to fixation. Nonsterile tourniquet was placed on the left thigh and the left ankle prepped and draped in the usual sterile fashion for ankle surgery. Timeout was performed, identifying the correct patient, correct procedure, and correct site. The procedure was begun by using the Esmarch to exsanguinate the left lower extremity and elevating the tourniquet to 250 mmHg. C-arm was used to localize the fracture site over the distal fibula. Longitudinal incision was made over the lateral aspect of the ankle, centered over the fibula and extending from the tip of the fibula to around 8 cm proximally. After the skin was incised, subcutaneous tissue was spread bluntly with Metzenbaum scissors until muscle/fascial layer encountered. A new, inside knife was used to cut down directly onto the fibula and periosteum was lifted anteriorly and posteriorly. Fracture site was identified, approximately 2 cm proximal to the tip of the fibula. The fracture site itself was seen to have a small amount of comminution anteriorly. A Assawoman was inserted into the fracture site and used to aid with reduction. There was no callus or debris at the fracture site and only a small amount of hematoma, which was removed with a rongeur. Pointed reduction forceps were used to hold fracture reduction and fibular length/alignment confirmed on C arm. Despite the small amount of comminution of the fracture site, I attempted to place a lag screw across the fracture site to gain interfragmentary fixation, but the patient's bone quality was simply too poor in this location. Upon drilling the boat pilot hole for the lag screw, the bone split into several pieces and the comminution worsened. At this point I made the decision to avoid further bone destruction at the fracture site and to simply bridge the fracture with a locking plate. I chose a 4 hole Synthes VariAx distal fibula locking plate and placed this over the lateral aspect of the bone. A 3.5 mm nonlocking screw was placed in the second hole from the top of the plate, to compress the plate to the bone. This measured 14 mm long. Next, distal fixation was placed in the tip of the fibula with locking screws. The holes in the distal aspect of the plate were for a number and in a tia configuration. The distalmost screw was 3.5 mm diameter locking screw, 10 mm in length. The 2 holes proximal to this were 3.5 mm diameter locking screws as well, the anterior screw 14 mm long in the posterior screw 16 mm long. The next proximal screw, making the apex of the distal triangle was a 16 mm long locking screw, 3.5 mm diameter. The next proximal most hole was the first shaft hole and was centered directly over the fracture site, so this was left open. The remainder of the shaft screws were then placed, which were all locking screws. The fourth screw was 3.5 mm diameter, 14 mm long, the next screw was 12 mm long and the proximalmost screw was 14 mm long, all 3.5 mm diameter. This provided good fixation for the fracture, which had good reduction and good length, alignment and rotation of the fibula. Next I turned my attention to the medial malleolus fracture. A longitudinal incision was made over the anteromedial ankle centered over the tip of the medial malleolus. Skin was incised and soft tissue bluntly dissected inocente per to the incision until the medial malleolus was encountered. Knife was used to sharply dissect tissue off the bone and the fracture site was immediately identified. This was reduced with a large, pointed periarticular reduction clamp and reduction confirmed on C arm. K wires were next used to provisionally fix the fracture and were placed at the location of my desired cannulated screw placement. 2 screw K wires were placed, one anterior and one more posterior, both placed perpendicular to the fracture site in a retrograde fashion from the tip of the medial malleolus proximally into the distal tibial metaphysis. These were in a slightly anteriorly directed position, but provided good reduction and fixation of the fracture with perpendicular placement to the fracture site. Cannulated drill bit was placed over each K wire in the near cortex perforated. Next, she cannulated screws were placed over the K wires, both were 4.0 mm diameter cancellus screws, partially threaded. The anteriormost screw was 60 mm long and the posterior screw was 5 mm long. Washers were placed with both screws and seated well to the bone. The posterior most screw actually subsided by about 1 to 2 mm into the bone. K wires were then removed. This provided excellent reduction and fixation of the medial malleolus fracture. Tourniquet was then dropped and no active bleeding identified in either incision. Both incisions were then copiously irrigated with sterile saline and closed in a layered fashion starting with 2-0 Vicryl deeper to cover for the plates with soft tissue and to close the subcutaneous tissue. The skin was then closed with 3-0 nylon. Prior to splinting, the posterior malleolus was examined under fluoroscopy and there was seen to be a small posterior malleolus fracture, less than 25% of the tibial width. The decision was made to treat this nonoperatively. Incisions were covered with Xeroform and dressed with 4 x 4's, sterile web roll and splinted with 4 inch Ortho-Glass in a posterior slab fashion. The patient was then extubated and transferred to PACU in good condition, or popliteal nerve block was administered. The patient incurred no complications during this case. Tourniquet time (min): 99 Condition: stable Disposition: PACU Specimens:: none Complications:: none
[2018-09-14 07:17] LABS: Basophils % 0.1 % (0.1-2.0); Eosinophils % 0.2 % (0.1-12.0); Hematocrit 31.5 % (37.0-47.0); Hemoglobin 10.7 g/dL (12.2-16.2); Lymphocytes # 1.2 K/mm3 (0.7-4.5); Mean Corpuscular HGB Conc 33.9 g/dL (31.8-35.4); Mean Corpuscular Hemoglobin 31.2 pg (27.0-31.2); Mean Corpuscular Volume 92.2 fl (81-99); Mean Platelet Volume 7.9 fl (7.4-10.4); Monocytes # 0.5 K/mm3 (0.1-1.0); Monocytes % 6.5 % (1.7-9.3); Neutrophils # 6.5 K/mm3 (1.8-7.8); Neutrophils % 78.2 % (37.0-80.0); Platelet Count 256 K/mm3 (142-424); Red Blood Count 3.42 M/mm3 (4.20-5.40); Red Cell Distribution Width 13.1 % (11.5-17.5); White Blood Count 8.3 K/mm3 (4.8-10.8)
[2018-09-14 07:27] LABS: Anion Gap 11.9 mEq/L (5-15); Calcium 7.8 mg/dL (8.5-10.1); Potassium 3.9 mmoL/L (3.5-5.1)
--- NOTE | 2018-09-14 08:47 | Progress Note ---
Internal Medicine - PN: Subj *Date: 09/14/18 *Time: 08:45 Interval history: Patient is awake, alert, and pleasant except she is perturbed by her diabetic diet. OR records reviewed from yesterday. Exam Vital signs and Labs for Last 24 Hours: Temp Pulse Resp BP Pulse Ox 97.8 F 94 H 16 102/53 L 96 09/14/18 08:00 09/14/18 08:00 09/14/18 08:00 09/14/18 08:00 09/14/18 08:00 Laboratory Results - last 24 hr 09/13/18 11:59: POC Glucose 117 H 09/13/18 20:25: POC Glucose 171 H 09/13/18 21:28: POC Glucose 252 H 09/14/18 06:05: POC Glucose 187 H 09/14/18 06:22: WBC 8.3, RBC 3.42 L, Hgb 10.7 L, Hct 31.5 L, MCV 92.2, MCH 31.2, MCHC 33.9, RDW 13.1, Plt Count 256, MPV 7.9, Neut % (Auto) 78.2, Lymph % (Auto) 15.0, [place] % (Auto) 6.5, Eos % (Auto) 0.2, Baso % (Auto) 0.1, Neut # (Auto) 6.5, Lymph # (Auto) 1.2, [place] # (Auto) 0.5, Eos # (Auto) 0.0, Baso # (Auto) 0.0 09/14/18 06:22: Sodium 138, Potassium 3.9, Chloride 105, Carbon Dioxide 25, Anion Gap 11.9, BUN 23 H, Creatinine 0.99, Estimated Creat Clear 56, Estimated GFR 55 L, Est GFR ( Amer) 66, Glucose 176 H, Calcium 7.8 L I & O for Last 24 hours: Intake & Output 09/11/18 09/12/18 09/13/18 09/14/18 11:59 11:59 11:59 11:59 Intake Total 651 / 651 1951 / 195 1532 / 1532 3032 / 3032 Output Total 50 / 50 750 / 750 150 / 150 Balance 601 / 601 1202 / 1202 1532 / 1532 2882 / 2882 Weight 154 lb 160 lb 1 oz 160 lb Microbiology Reports for the Last 24 Hours: Microbiology 09/11/18 17:20 Blood Blood Culture - Preliminary NO GROWTH AFTER 48 HOURS 09/11/18 11:23 Blood Blood Culture - Preliminary NO GROWTH AFTER 48 HOURS 09/11/18 10:57 Urine,Catheterized Urine Culture - Final Escherichia coli Narrative: Patient is awake and alert. Oropharynx clear, heart rate regular. Good air movement. Left leg in splint. Exam deferred to Ortho. Assessment and Plan (1) Orthostatic hypotension Current visit: Yes Status: Acute Category: Medical Code(s): I95.1 - Orthostatic hypotension (2) History of breast cancer Current visit: Yes Status: Acute Category: Medical Code(s): Z85.3 - Personal history of malignant neoplasm of breast (3) Fracture dislocation of left ankle joint Current visit: Yes Status: Acute Qualifiers: Encounter type: initial encounter Fracture type: closed Qualified Code(s): S82.892A - Other fracture of left lower leg, initial encounter for closed fracture Category: Medical Code(s): S82.892A - Other fracture of left lower leg, initial encounter for closed fracture (4) Hypertension, essential Current visit: Yes Status: Acute Category: Medical Code(s): I10 - Essential (primary) hypertension (5) Diabetes mellitus type 2, noninsulin dependent Current visit: Yes Status: Acute Category: Medical Code(s): E11.9 - Type 2 diabetes mellitus without complications (6) UTI (urinary tract infection) Current visit: Yes Status: Acute Category: Medical Code(s): N39.0 - Urinary tract infection, site not specified - Assessment and plan all Dx Assessment and Plan for all problems:: Medical conditions stable. Liberalize patient's diet. Long discussion with patient and daughter about rehab/home safety/private pay options at rehab facilities.
--- NOTE | 2018-09-14 09:55 | Progress Note ---
Subjective Date: 09/14/18 Time: 09:00 Principal diagnosis: L ankle fracture Interval history: The patient is doing well this morning, no pain in the L ankle. Working with PT as I speak with her. PN: Obj Ex Vital signs: Temp Pulse Resp BP Pulse Ox 97.8 F 94 H 16 102/53 L 96 09/14/18 08:00 09/14/18 08:00 09/14/18 08:00 09/14/18 08:00 09/14/18 08:00 - Constitutional no acute distress, average body habitus, cooperative - Routine HEENT Exam Head: Present: normocephalic Eye: Present: EOMI ENT: Present: mucous membranes moist - Routine Respiratory Exam Present: CTA bilaterally. Absent: accessory muscle use, wheezes - Routine Cardiovascular Exam Present: RRR - Routine Abdominal Exam Present: soft. Absent: tenderness - Routine Extremities Exam Comments: LLE splint intact L calf (proximal to splint) soft, non-tender wiggles toes, which are warm and well-perfused - Routine Skin Exam Present: intact. Absent: cyanosis, erythema - Routine Neurological Exam Present: alert, oriented X3, moving all extremities. Absent: sensory deficit, motor deficit, altered mental status - Routine Psychiatric Exam Present: normal affect Progress Note: A&P (1) Orthostatic hypotension Status: Acute Current Visit: Yes (2) History of breast cancer Status: Acute Current Visit: Yes (3) Fracture dislocation of left ankle joint Status: Acute Current Visit: Yes (4) Hypertension, essential Status: Acute Current Visit: Yes (5) Diabetes mellitus type 2, noninsulin dependent Status: Acute Current Visit: Yes (6) UTI (urinary tract infection) Status: Acute Current Visit: Yes Assessment and Plan for All Diagnoses:: 73yo F POD 1 s/p ORIF L ankle fx -- NWB LLE, up ad baljeet with walker -- continue PT/OT -- elevate LLE + ice PRN -- pain medication ordered PRN; Rx on chart for discharge -- strongly recommend SNF for patient safety; discharge planners working on dispo -- treatment of UTI per Dr. Kemp
--- NOTE | 2018-09-14 10:22 | Progress Note ---
Internal Medicine - PN: Subj *Date: 09/14/18 *Time: 10:22 Exam Vital signs and Labs for Last 24 Hours: Temp Pulse Resp BP Pulse Ox 97.8 F 94 H 16 102/53 L 96 09/14/18 08:00 09/14/18 08:00 09/14/18 08:00 09/14/18 08:00 09/14/18 08:00 Laboratory Results - last 24 hr 09/13/18 11:59: POC Glucose 117 H 09/13/18 20:25: POC Glucose 171 H 09/13/18 21:28: POC Glucose 252 H 09/14/18 06:05: POC Glucose 187 H 09/14/18 06:22: WBC 8.3, RBC 3.42 L, Hgb 10.7 L, Hct 31.5 L, MCV 92.2, MCH 31.2, MCHC 33.9, RDW 13.1, Plt Count 256, MPV 7.9, Neut % (Auto) 78.2, Lymph % (Auto) 15.0, [place] % (Auto) 6.5, Eos % (Auto) 0.2, Baso % (Auto) 0.1, Neut # (Auto) 6.5, Lymph # (Auto) 1.2, [place] # (Auto) 0.5, Eos # (Auto) 0.0, Baso # (Auto) 0.0 09/14/18 06:22: Sodium 138, Potassium 3.9, Chloride 105, Carbon Dioxide 25, Anion Gap 11.9, BUN 23 H, Creatinine 0.99, Estimated Creat Clear 56, Estimated GFR 55 L, Est GFR ( Amer) 66, Glucose 176 H, Calcium 7.8 L I & O for Last 24 hours: Intake & Output 09/11/18 09/12/18 09/13/18 09/14/18 23:59 23:59 23:59 23:59 Intake Total 1627 / 1627 1948 / 1948 2689 / 2689 903 / 903 Output Total 350 / 350 450 / 450 150 / 150 Balance 1277 / 1277 1498 / 1498 2539 / 2539 903 / 903 Weight 69.853 kg 75.948 kg 72.603 kg 72.575 kg Microbiology Reports for the Last 24 Hours: Microbiology 09/11/18 17:20 Blood Blood Culture - Preliminary NO GROWTH AFTER 48 HOURS 09/11/18 11:23 Blood Blood Culture - Preliminary NO GROWTH AFTER 48 HOURS Assessment and Plan (1) Orthostatic hypotension Current visit: Yes Status: Acute Category: Medical Code(s): I95.1 - Orthostatic hypotension (2) History of breast cancer Current visit: Yes Status: Acute Category: Medical Code(s): Z85.3 - Personal history of malignant neoplasm of breast (3) Fracture dislocation of left ankle joint Current visit: Yes Status: Acute Qualifiers: Encounter type: initial encounter Fracture type: closed Qualified Code(s): S82.892A - Other fracture of left lower leg, initial encounter for closed fracture Category: Medical Code(s): S82.892A - Other fracture of left lower leg, initial encounter for closed fracture (4) Hypertension, essential Current visit: Yes Status: Acute Category: Medical Code(s): I10 - Essential (primary) hypertension (5) Diabetes mellitus type 2, noninsulin dependent Current visit: Yes Status: Acute Category: Medical Code(s): E11.9 - Type 2 diabetes mellitus without complications (6) UTI (urinary tract infection) Current visit: Yes Status: Acute Category: Medical Code(s): N39.0 - Urinary tract infection, site not specified The patient's infection will respond to the chosen ABx?: Yes Is the patient receiving the right drug, dose, and route?: Yes Could a more targeted ABx be ordered?: No (URINE CULTURE POSITIVE FOR E COLI SENSITIVE TO ROCEPHIN)
[2018-09-15 06:53] LABS: Anion Gap 10.2 mEq/L (5-15); Calcium 7.6 mg/dL (8.5-10.1); Potassium 3.2 mmoL/L (3.5-5.1)
[2018-09-15 07:02] LABS: Basophils % 0.5 % (0.1-2.0); Eosinophils # 0.2 K/mm3 (0.0-0.4); Eosinophils % 2.4 % (0.1-12.0); Hematocrit 30.7 % (37.0-47.0); Hemoglobin 10.1 g/dL (12.2-16.2); Lymphocytes # 1.9 K/mm3 (0.7-4.5); Lymphocytes % 26.6 % (10-50); Mean Corpuscular Hemoglobin 30.9 pg (27.0-31.2); Mean Corpuscular Volume 93.7 fl (81-99); Mean Platelet Volume 7.3 fl (7.4-10.4); Monocytes # 0.5 K/mm3 (0.1-1.0); Neutrophils # 4.4 K/mm3 (1.8-7.8); Neutrophils % 63.5 % (37.0-80.0); Platelet Count 270 K/mm3 (142-424); Red Blood Count 3.27 M/mm3 (4.20-5.40); Red Cell Distribution Width 13.2 % (11.5-17.5)
--- NOTE | 2018-09-15 09:00 | Discharge Summary ---
General - General Admission date:: 09/10/18 Discharge date: 09/15/18 HPI HPI: 73-year-old white female with multiple medical problems including osteoporosis, kyphosis and others detailed in her past medical history who was carrying groceries downstairs last night after coming in from the car and slipped on the lower step of her basement steps and fell. She was unable to bear weight on the left ankle, brought to the emergency department and work-up revealed significant left ankle/distal tib-fib fracture. Please see orthopedic notes for details of this. Patient admitted for pain control, orthopedic evaluation and planned surgical procedure. In addition, patient was noted to have orthostatic blood pressure changes in the ER and on second floor with systolic blood pressure ranging from 130 down to 105 on repetitive exams. Hospital Course Hospital Course: Patient was admitted to hospital. Orthopedic consultation was obtained. Given the severity of the fracture and her need for aggressive treatment to restore ambulation, she was taken to the OR for evaluation. ORIF was contemplated however Claros catheter placement revealed significant urinary tract infection which culminated in a culture showing greater than 100,000 colonies of E. coli and plan to surgery was postponed until bacteremia was ruled out. Reduction under fluoroscopy was achieved with good results, and patient was transferred back to the floor and ceftriaxone was begun for urinary tract infection. Once diagnosis of bacteremia was eliminated patient was returned to the OR for definitive ORIF. Please see orthopedic notes for details. After surgery patient did very nicely. She was mildly hypokalemic and this was replaced with oral potassium. She was transitioned to oral therapy for UTI. She met goals of inpatient rehab and was deemed suitable for acute care rehab transfer and she will be transferred to the [facility] rehabilitation facility in [place] today for short-term acute rehab and then follow-up with orthopedic service here at [facility] and with me as an outpatient once discharged accomplished. Please note that she will be prescribed Omnicef 300 twice daily for a week to finish up treatment for the E. coli urinary tract infection. She was prescribed 20 mEq of potassium twice daily for the next 5 days. This will need to be monitored at [facility]. Objective Vital signs: Temp Pulse Resp BP Pulse Ox 98.5 F 99 H 18 109/68 L 96 09/15/18 08:00 09/15/18 08:00 09/15/18 08:00 09/15/18 08:00 09/15/18 08:00 Narrative: Patient is pleasant, talkative. Oropharynx clear. Heart rate regular. Anterior lung mendoza are clear. Left leg in splint. Toes are visible and warm and well-perfused. She has fairly minimal pain. Cranial nerves are intact. Able to move all extremities well except the obvious limitation from her splint on the left lower extremity. Results Labs on day of discharge: Labs from last 24 hours 09/15/18 09/15/18 05:50 05:50 WBC 7.0 RBC 3.27 L Hgb 10.1 L Hct 30.7 L MCV 93.7 MCH 30.9 MCHC 33.0 RDW 13.2 Plt Count 270 MPV 7.3 L Neut % (Auto) 63.5 Lymph % (Auto) 26.6 [place] % (Auto) 7.0 Eos % (Auto) 2.4 Baso % (Auto) 0.5 Neut # (Auto) 4.4 Lymph # (Auto) 1.9 [place] # (Auto) 0.5 Eos # (Auto) 0.2 Baso # (Auto) 0.0 Sodium 140 Potassium 3.2 L Chloride 106 Carbon Dioxide 27 Anion Gap 10.2 BUN 15 D Creatinine 0.84 Estimated Creat Clear 55 Estimated GFR 66 Est GFR ( Amer) 80 D Glucose 123 H D Calcium 7.6 L Preliminary micro results at discharge 09/11/18 17:20 Blood Culture - Preliminary Blood NO GROWTH AFTER 48 HOURS 09/11/18 11:23 Blood Culture - Preliminary Blood NO GROWTH AFTER 48 HOURS DS: Diagnosis - Discharge Diagnosis (1) Orthostatic hypotension Status: Resolved (2) History of breast cancer Status: Chronic (3) Fracture dislocation of left ankle joint Status: Acute (4) Hypertension, essential Status: Chronic (5) Diabetes mellitus type 2, noninsulin dependent Status: Chronic (6) UTI (urinary tract infection) Status: Acute Discharge Plan - Patient Discharge Instructions ACTIVITY: Up with assistance DIET: continue same diet Patient Instructions: Ankle Fracture, DI for Ankle Fracture, How to Prevent Falls - Follow up Plan Follow up with: Jacky Kemp MD [Primary Care Provider] - Leslee Kohler MD [Physician] - Disposition: Xfer Short-Term Hosp Home Medications: Home Medications Medication Instructions Recorded Confirmed Type Duloxetine HCl [Cymbalta] 60 mg PO HS 09/10/18 09/11/18 History Lisinopril/Hydrochlorothiazide 1 tab PO DAILY 09/10/18 09/11/18 History [Lisinopril-Hctz 10-12.5 mg Tab] Meloxicam 15 mg PO DAILY 09/10/18 09/11/18 History Metformin HCl [Glucophage Xr] 500 mg PO HS 09/10/18 09/11/18 History Pravastatin Sodium [Pravachol] 20 mg PO HS 09/10/18 09/11/18 History raNITIdine HCl [Zantac] 300 mg PO HS 09/11/18 09/12/18 History Cefdinir [Omnicef 300mg Capsule] 300 mg PO BID #14 cap 09/15/18 Rx Oxycodone HCl/Acetaminophen 1 tab PO Q6H PRN #30 tab 09/15/18 Rx [Percocet 5/325mg tablet] Potassium Chloride 20 meq PO BID #10 tablet.er 09/15/18 Rx Prescriptions/Medication Reconciliation: New Potassium Chloride 20 meq PO BID #10 tablet.er Oxycodone HCl/Acetaminophen [Percocet 5/325mg tablet] 1 tab PO Q6H PRN #30 tab PRN Reason: Moderate To Severe Pain Cefdinir [Omnicef 300mg Capsule] 300 mg PO BID #14 cap Continued Pravastatin Sodium [Pravachol] 20 mg PO HS Metformin HCl [Glucophage Xr] 500 mg PO HS Duloxetine HCl [Cymbalta] 60 mg PO HS Lisinopril/Hydrochlorothiazide [Lisinopril-Hctz 10-12.5 mg Tab] 1 tab PO DAILY raNITIdine HCl [Zantac] 300 mg PO HS Discontinued Meloxicam 15 mg PO DAILY
--- NOTE | 2018-09-15 09:30 | Progress Note ---
Subjective Date: 09/15/18 Time: 09:00 Principal diagnosis: L ankle fracture Interval history: Patient is doing well, block has worn off and she is having more pain, but well- controlled with oral meds. PN: Obj Ex Vital signs: Temp Pulse Resp BP Pulse Ox 98.5 F 99 H 18 109/68 L 96 09/15/18 08:00 09/15/18 08:00 09/15/18 08:00 09/15/18 08:00 09/15/18 08:00 - Routine Extremities Exam Comments: LLE splint intact wiggles toes, SILT across toes, which are warm/well-perfused no calf pain no drainage through splint Progress Note: A&P (1) Orthostatic hypotension Status: Resolved Current Visit: Yes (2) History of breast cancer Status: Chronic Current Visit: Yes (3) Fracture dislocation of left ankle joint Status: Acute Current Visit: Yes (4) Hypertension, essential Status: Chronic Current Visit: Yes (5) Diabetes mellitus type 2, noninsulin dependent Status: Chronic Current Visit: Yes (6) UTI (urinary tract infection) Status: Acute Current Visit: Yes Assessment and Plan for All Diagnoses:: 73yo F POD #2 s/p ORIF L ankle -- NWB LLE, continue PT/OT -- elevate LLE when in bed -- Rx for pain meds on chart -- d/c to [facility] today -- f/u with me in 1 week; 09/23/18 at 10am
== END 2018-09-15 11:56 ==
LOC: ER 22:11 → 2ND 22:11
PROVIDERS: ADMIT Family Medicine; ATTEND Internal Medicine Adolescent Medicine
CPT/HCPCS: 36415; 71010; 71045; 72170; 73600; 76000; 80048; 80053; 81001; 82962; 85025; 85610; 85730; 87040; 87086; 87088; 87186; 93005; 96374; 96375; 97110; 97116; 97162; 97530; 99284; C1713; C1776; G0378; J2405

== ENCOUNTER → 2018-09-23 11:02 | Outpatient (CLI) | payer MEDICARE, OTHER, SELFPAY ==
--- NOTE | 2018-09-23 11:12 | XR_ITS ---
XR ankle LT min 3V HISTORY: Follow-up ORIF ITS.REASON: 3 views NWB ORDERING PHYSICIAN: Leslee Kohler MD PATIENT AGE: 73 years Comparison: 09/11/2018 FINDINGS: Status post ORIF with a lateral bone plate at the distal fibula and 2 screws within the medial malleoli region with good alignment. The mortise does not appear widened. There is a fragment along the anterior distal tibia is slightly displaced anteriorly. IMPRESSION: Status post ORIF left ankle fracture as described above with good alignment of the medial malleoli are region and distal fibula and mild displacement of the major distal tibial fragment
== END ==
PROVIDERS: PCP Internal Medicine Adolescent Medicine; Visit Provider Orthopaedic Surgery
DX: S82.892A Other fracture of left lower leg, initial encounter for closed fracture (principal)
CPT/HCPCS: 73610

== ENCOUNTER → 2018-10-11 14:59 | Outpatient (CLI) | payer MEDICARE, OTHER, SELFPAY ==
--- NOTE | 2018-10-11 15:03 | CT_ITS ---
CT foot LT wo con INDICATION: Pain, follow-up fracture with ORIF ITS.REASON: ct ORDERING PHYSICIAN: Je Eugene PATIENT AGE: 73 years COMPARISON: 09/23/2018 TECHNIQUE: Axial images are obtained without contrast. Sagittal and coronal reformatted images are reviewed as well. All CT scans at the facility use one or more dose reduction, viz: automated exposure control, ma/kV adjustment per patient size (including targeted exams where dose is matched to indication, i.e. head), or iterative reconstruction technique. FINDINGS: There has been prior ORIF of bimalleolar fracture. There are 2 screws present from the medial malleoli region stabilizing the medial malleolar fracture. Fracture line is still visible and is more prominent along the anterior margin as compared to the posterior margin with minimal displacement of the distal fracture fragment anteriorly by approximately 4 mm. Bone plate with multiple screws are present along the distal fibula stabilizing the lateral malleolus fracture which is in good alignment. There is a nondisplaced posterior distal tibial fracture is in good alignment. No other fracture is evident. There is mild hallux valgus with mild osteoarthritic change and bunion formation at the first metatarsophalangeal joint. IMPRESSION: Status post ORIF of the trimalleolar fracture as detailed above. There is mild displacement of the medial malleoli fracture with incomplete bony healing. There is good alignment of the lateral malleolus or and posterior malleoli fragments
== END ==
PROVIDERS: PCP Internal Medicine Adolescent Medicine; Visit Provider Nurse Practitioner Family
DX: S82.843A Displaced bimalleolar fracture of unspecified lower leg, initial encounter for closed fracture (principal)
CPT/HCPCS: 73700

== ENCOUNTER → 2018-11-02 09:42 | Outpatient (CLI) | payer MEDICARE, OTHER, SELFPAY ==
--- NOTE | 2018-11-02 09:46 | XR_ITS ---
XR ankle LT min 3V HISTORY: ITS.REASON: post op ORDERING PHYSICIAN: Leslee Kohler MD PATIENT AGE: 73 years Comparison: 09/23/2018. FINDINGS: The orthopedic hardware is stable. There has been removal of the cast device. Joint space and alignment are normal. The width of the transverse medial malleolar fracture line is 2.9 mm. This is probably stable when considering some difference in positioning on this study. Impression: Removal of the cast. No other change.
== END ==
PROVIDERS: PCP Internal Medicine Adolescent Medicine; Visit Provider Orthopaedic Surgery
DX: S82.892A Other fracture of left lower leg, initial encounter for closed fracture (principal)
CPT/HCPCS: 73610

== ENCOUNTER → 2018-11-18 11:14 | Outpatient (CLI) | payer MEDICARE, OTHER, SELFPAY ==
--- NOTE | 2018-11-18 11:18 | XR_ITS ---
XR hip RT 2-3V w/pelvis HISTORY: ITS.REASON: right hip pain ORDERING PHYSICIAN: Fabiano Thomas MD PATIENT AGE: 73 years COMPARISON: None FINDINGS: No fracture or dislocation is evident. There is very subtle irregular radiolucency of the base of the femoral neck along the intratrochanteric line. The right iliac bone and the pubic bones appear intact. IMPRESSION: Probably negative right hip, however in view of the increasing pain possibly follow-up CT scan right hip should be considered.
--- NOTE | 2018-11-18 11:18 | XR_ITS ---
EXAM: XR lumbar spine 2-3V HISTORY: Low back pain ITS.REASON: evaluate for fracture ORDERING PHYSICIAN: Fabiano Thomas MD PATIENT AGE: 73 years COMPARISON: None FINDINGS: There is mild levoscoliotic curvature. All lumbar vertebrae appear intact. There is disc space narrowing with endplate sclerosis at the L5-S1 level. There is 6 mm anterolisthesis of L4 on L5. There is no definite pars defect in this change is likely secondary to arthritic changes of the facet joints. There are moderate hypertrophic facet changes at the L4-5 and L5-S1 levels. The SI joints per normal. IMPRESSION: Mild levoscoliotic curvature along with moderate degenerative disc disease L5-S1 and hypertrophic facet changes L4-5 and L5-S1, no acute fracture seen
--- NOTE | 2018-11-18 11:41 | CT_ITS ---
CT hip RT wo con INDICATION: for hip fracture ORDERING PHYSICIAN: Fabiano Thomas MD PATIENT AGE: 73 years COMPARISON: 11/18/2018, plain film TECHNIQUE: Axial images obtained with sagittal and coronal reformats. All CT scans at the facility use one or more dose reduction, viz: automated exposure control, ma/kV adjustment per patient size (including targeted exams where dose is matched to indication, i.e. head), or iterative reconstruction technique. FINDINGS: The femoral head and neck appear intact with no obvious fracture. There is no obvious smudging or distortion of the bony trabeculae in the femoral head or neck. There is minor osteophytic spurring of the roof of the acetabulum with minor asymmetrical joint space narrowing of the hip joint. IMPRESSION: Minor osteoarthritic changes, no definite acute fracture identified this time however there is persistent pain and/or lack of weightbearing possibly follow-up MRI scan right hip should be considered
== END ==
PROVIDERS: PCP Internal Medicine Adolescent Medicine; Visit Provider Orthopaedic Surgery
DX: M25.551 Pain in right hip (principal); M54.9 Dorsalgia, unspecified
CPT/HCPCS: 72100; 73502; 73700

== ENCOUNTER → 2018-11-24 11:32 | Outpatient (CLI) | payer MEDICARE, OTHER, SELFPAY ==
--- NOTE | 2018-11-24 11:38 | XR_ITS ---
XR ankle LT min 3V HISTORY: Follow-up ORIF ITS.REASON: post op lt ankle ORDERING PHYSICIAN: Leslee Kohler MD PATIENT AGE: 73 years Comparison: 11/08/2018 FINDINGS: No change in the medial lateral bone plate at the distal tibia and fibula with persistent K wire within the medial malleoli region. There remains good alignment. Small amount of calcification is present along the anterior and medial aspect of the distal tibia. IMPRESSION: Good alignment status post ORIF
== END ==
PROVIDERS: PCP Internal Medicine Adolescent Medicine; Visit Provider Orthopaedic Surgery
DX: S82.892A Other fracture of left lower leg, initial encounter for closed fracture (principal)
CPT/HCPCS: 73610

== ENCOUNTER → 2018-12-09 08:30 | Outpatient (CLI) | payer MEDICARE, OTHER, SELFPAY ==
--- NOTE | 2018-12-09 08:35 | XR_ITS ---
XR DEXA axial skeleton HISTORY: ITS.REASON: OSTEOPOROSIS ORDERING PHYSICIAN: Jacky Kemp MD PATIENT AGE: 73 years COMPARISON: None FINDINGS: The BMD measured at the Right femoral neck is 0.658 g/cm squared with a T score of -2.7. This is considered Osteoporotic according to the World Health Organization criteria. Fracture risk is High. Treatment is advised. IMPRESSION: Osteoporosis with high fracture risk. Treatment is advised. Suggest follow-up exam December 2019
--- NOTE | 2018-12-09 08:55 | XR_ITS ---
XR ankle LT min 3V HISTORY: Follow-up fracture ITS.REASON: 3 view NWB ORDERING PHYSICIAN: Jacky Kemp MD PATIENT AGE: 73 years Comparison: (: 11/24/2018 FINDINGS: The metallic plate is again seen along the lateral border of the distal fibula fixated by multiple threaded screws with the fracture in anatomic alignment. The metallic plate is also seen along the distal medial aspect of the tibia along with the K wire in place as well. There appears be some interval bony resolution of the tip of the medial malleolus when compared to previous studies from 09/23/2018 . Mild diffuse soft tissue swelling is seen both medially and laterally. IMPRESSION: Stable ORIF medial malleolus and distal fibula as noted previously
== END ==
PROVIDERS: PCP Internal Medicine Adolescent Medicine; Visit Provider Internal Medicine Adolescent Medicine
DX: S82.843A Displaced bimalleolar fracture of unspecified lower leg, initial encounter for closed fracture (principal); M81.0 Age-related osteoporosis without current pathological fracture
CPT/HCPCS: 73610; 77080

== ENCOUNTER → 2018-12-26 08:33 | Outpatient (CLI) | payer MEDICARE, OTHER, SELFPAY ==
[2018-12-26 14:09] LABS: Albumin Level 3.6 gm/dL (3.4-5.0); Calcium 9.2 mg/dL (8.5-10.1); Creatinine,Serum 0.95 mg/dL (0.55-1.02); Estimated Glomerular Filt Rate 57 ml/min (>60); GFR (African American) 69 ML/MIN (>60)
== END ==
PROVIDERS: PCP Internal Medicine Adolescent Medicine; Visit Provider Internal Medicine Adolescent Medicine
DX: M81.0 Age-related osteoporosis without current pathological fracture (principal)
CPT/HCPCS: 36415; 82040; 82310; 82565

== ENCOUNTER 2018-12-28 10:22 | Outpatient (CLI) | payer MEDICARE, OTHER, SELFPAY ==
[2018-12-28 10:35] VITALS: BP 114/58; PULSE 80; RESP 18; O2SAT 100
[2018-12-28 11:00] VITALS: BP 137/67; PULSE 86; RESP 18; O2SAT 100
== END 2018-12-28 11:00 | disposition home or self-care (01) ==
LOC: INF 10:22
PROVIDERS: Visit Provider Internal Medicine Adolescent Medicine
DX: M81.0 Age-related osteoporosis without current pathological fracture (principal)
CPT/HCPCS: 96374; J3489

== ENCOUNTER → 2019-01-13 09:48 | Outpatient (CLI) | payer MEDICARE, OTHER, SELFPAY ==
--- NOTE | 2019-01-13 09:54 | XR_ITS ---
PROCEDURE: XR ANKLE LT MIN 3V CLINICAL INDICATION: Ankle FX FU COMPARISON: [id number] XR ankle LT 2V from 09/13/2018 from 11/24/2018 from 12/09/2018 FINDINGS: The metallic plate distal fibula and the other metallic plate distal tibia are stable and unchanged in appearance from the most recent study. There apparently has been bony resorption and/or resection of the tip of the medial malleolus. The ankle mortise appears grossly normal. Mild diffuse soft tissue swelling is seen especially medially. IMPRESSION: Post ORIF findings as described Dictated by: Dr. Joseph Valdez MD 01/13/2019 11:[address] Joseph Valdez MD in [facility] 01/13/2019 11:04
== END ==
PROVIDERS: PCP Internal Medicine Adolescent Medicine; Visit Provider Orthopaedic Surgery
DX: S82.842D Displaced bimalleolar fracture of left lower leg, subsequent encounter for closed fracture with routine healing (principal)
CPT/HCPCS: 73610

== ENCOUNTER 2019-01-13 11:33 | Outpatient (RCR) | payer MEDICARE, OTHER, SELFPAY | END 2019-01-13 11:45 | disposition home or self-care (01) | LOC: PT 11:33 | PROVIDERS: Visit Provider Orthopaedic Surgery | DX: S82.892A Other fracture of left lower leg, initial encounter for closed fracture (principal) | CPT/HCPCS: 97760 ==

== ENCOUNTER → 2019-02-10 08:44 | Outpatient (CLI) | payer MEDICARE, OTHER, SELFPAY ==
--- NOTE | 2019-02-10 08:49 | XR_ITS ---
PROCEDURE: XR ANKLE LT MIN 3V CLINICAL INDICATION: Left ankle FX follow-up COMPARISON: 09/11/2018. FINDINGS: There is now compression plates with fixation screws involving distal tibia and fibula. There is anatomic alignment of fracture fragments. Bone density, joint spaces and alignment are normal. There is some prominence of the anterior posterior medial soft tissues. IMPRESSION: Postoperative findings with probable soft tissue edema. Dictated by: Forest Coates 02/10/2019 09:01 Electronically signed by Forest Coates in [facility] 02/10/2019 09:01
== END ==
PROVIDERS: PCP Internal Medicine Adolescent Medicine; Visit Provider Orthopaedic Surgery
DX: S82.892A Other fracture of left lower leg, initial encounter for closed fracture (principal)
CPT/HCPCS: 73610

== ENCOUNTER → 2019-06-15 10:18 | Outpatient (CLI) | payer MEDICARE, OTHER, SELFPAY ==
--- NOTE | 2019-06-15 10:36 | ECG_ITS ---
APPROVED REPORT Exam: Resting ECG HR:83 bpm ECG Measurements Heart Rate 83 AXES ID 134 P 67 QRSd 94 QRS 62 QT 372 T 67 QTc 437 <Conclusion> Normal sinus rhythm Low voltage QRS Borderline ECG Electronically signed by : Jacky Kemp, 06/15/2019 15:27:59
[2019-06-15 10:54] LABS: Basophils # 0.1 K/mm3 (0-0.2); Basophils % 1.1 % (0.1-2.0); Eosinophils # 0.1 K/mm3 (0.0-0.4); Eosinophils % 1.9 % (0.1-12.0); Hematocrit 42.3 % (37.0-47.0); Hemoglobin 13.7 g/dL (12.2-16.2); Lymphocytes # 1.7 K/mm3 (0.7-4.5); Lymphocytes % 41.5 % (10-50); Mean Corpuscular HGB Conc 32.5 g/dL (31.8-35.4); Mean Corpuscular Volume 92.2 fl (81-99); Mean Platelet Volume 7.8 fl (7.4-10.4); Monocytes # 0.3 K/mm3 (0.1-1.0); Monocytes % 7.7 % (1.7-9.3); Neutrophils % 47.7 % (37.0-80.0); Platelet Count 338 K/mm3 (142-424); Red Blood Count 4.59 M/mm3 (4.20-5.40); Red Cell Distribution Width 12.9 % (11.5-17.5); White Blood Count 4.1 K/mm3 (4.8-10.8)
[2019-06-15 11:37] LABS: Anion Gap 11.6 mEq/L (5-15); Blood Urea Nitrogen 22 mg/dL (7-18); Calcium 9.5 mg/dL (8.5-10.1); Carbon Dioxide 31 mmol/L (21.0-32.0); Chloride 103 mmol/L (98-107); Creatinine,Serum 1.05 mg/dL (0.55-1.02); Estimated Glomerular Filt Rate 51 ml/min (>60); GFR (African American) 62 ML/MIN (>60); Glucose 109 mg/dL (74-106); Potassium 4.6 mmoL/L (3.5-5.1); Sodium 141 mmol/L (136-145)
== END ==
PROVIDERS: PCP Internal Medicine Adolescent Medicine; Visit Provider Colon & Rectal Surgery
DX: E11.9 Type 2 diabetes mellitus without complications (principal)
CPT/HCPCS: 36415; 80048; 85025; 93005

== ENCOUNTER → 2020-07-22 10:11 | Outpatient (CLI) | payer MEDICARE, OTHER, SELFPAY ==
--- NOTE | 2020-07-22 10:18 | XR_ITS ---
PROCEDURE: XR SHOULDER LT MIN 2V CLINICAL INDICATION: Left shoulder pain COMPARISON: No exams were available for comparison FINDINGS: No fracture or dislocation. No lytic or blastic change. There is normal mineralization. There are severe osteoarthritic changes the left glenohumeral joint with loss of joint space osteosclerosis and osteophyte formation. Subchondral cystic changes are present in the humeral head. Surgical clips are present in the left axilla. The AC joint has an unremarkable appearance. Other findings:None. IMPRESSION: Severe osteoarthritis of the left glenohumeral joint Dictated by: Reed Haskins MD 07/22/2020 13:13 Reed Haskins MD in [facility] 07/22/2020 13:13
== END ==
PROVIDERS: PCP Internal Medicine Adolescent Medicine; Visit Provider Orthopaedic Surgery
DX: M25.512 Pain in left shoulder (principal)
CPT/HCPCS: 73030

== ENCOUNTER → 2022-01-01 06:05 | Outpatient (CLI) | payer MEDICARE, OTHER, SELFPAY | PROVIDERS: PCP Internal Medicine Adolescent Medicine; Visit Provider Internal Medicine Adolescent Medicine | DX: R09.81 Nasal congestion (principal); Z20.822 Contact with and (suspected) exposure to COVID-19 | CPT/HCPCS: C9803; U0003; U0005 ==

== ENCOUNTER → 2022-09-04 09:18 | Outpatient (CLI) | payer MEDICARE, OTHER, SELFPAY ==
--- NOTE | 2022-09-04 09:22 | XR_ITS ---
FINAL REPORT TECHNIQUE: Bone densitometry calculations of the lumbar spine and left hip were obtained. CLINICAL HISTORY: . POST MENOPAUSAL FINDINGS: Using L1-4, the bone mineral density of the spine is 1.016 g/cm2, corresponding to T-score of -0.3 which is likely falsely elevated secondary to hypertrophic changes.. Using the left hip, the bone mineral density of the femoral neck is 0.630 g/cm2, corresponding to a T-score of -1.9. Using the right hip, the bone mineral density of the femoral neck is 0.532 g/cm2, corresponding to a T-score of -2.9. NOTE: T-score: Standard deviation compared with peak bone mass of young adult mean. *Following the recommendations of the International Society of Bone Densitometry, classification of hip BMD is based on the lower of two T-scores; total hip or femoral neck. IMPRESSION: Osteoporosis: Lowest T-score is at or below -2.5. This patient's T-score meets the World Health Organization criteria for osteoporosis. Lumbar spine values likely falsely elevated secondary to hypertrophic changes. Reviewed, Interpreted and Dictated by Gilmar Hernandez III, MD Transcribed by Lizett Montemayor Authenticated and [facility]
== END ==
PROVIDERS: PCP Internal Medicine Adolescent Medicine; Visit Provider Nurse Practitioner Family
DX: M81.0 Age-related osteoporosis without current pathological fracture (principal)
CPT/HCPCS: 77080

== ENCOUNTER 2022-09-30 12:46 | Outpatient (CLI) | payer MEDICARE, OTHER, SELFPAY ==
[2022-09-30 13:00] VITALS: BP 123/66; PULSE 90; RESP 20; TEMP 36.2; O2SAT 100
== END 2022-09-30 13:27 | disposition home or self-care (01) ==
LOC: INF 12:47
PROVIDERS: PCP Internal Medicine Adolescent Medicine; Visit Provider Internal Medicine Adolescent Medicine
DX: M81.0 Age-related osteoporosis without current pathological fracture (principal)
CPT/HCPCS: 96372; J0897

== ENCOUNTER 2023-04-07 12:52 | Outpatient (CLI) | payer MEDICARE, OTHER, SELFPAY ==
[2023-04-07 13:11] VITALS: BP 141/82; PULSE 84; RESP 16; TEMP 36.6; O2SAT 97
== END 2023-04-07 13:30 | disposition home or self-care (01) ==
LOC: INF 12:52
PROVIDERS: PCP Internal Medicine Adolescent Medicine; Visit Provider Internal Medicine Adolescent Medicine
DX: M81.0 Age-related osteoporosis without current pathological fracture (principal)
CPT/HCPCS: 96372; J0897

== ENCOUNTER 2023-05-12 10:00 | Outpatient (RCR) | payer MEDICARE, OTHER, SELFPAY ==
--- NOTE | 2023-04-12 12:33 | HMH.PTOPEV ---
PT Outpatient Evaluation Rehab PT Outpatient Evaluation Start: 04/12/23 10:09 Freq: Status: Active Protocol: Document 04/12/23 10:09 PDESEROUX (Rec: 04/12/23 12:33 [email or web address] [id number]) E-signed By Carson Patel, PT Outpatient Therapy Subjective History Subjective History Pt. is a 77 year old female who presents to [facility] Out[facility] Therapy Services in [place] for the initial evaluation this date(04/12/23) w/ c/o chronic and constant BUE(L>R) shldr. P!, weakness, and dysfunction of traumatic onset that is progressively getting worse. Pt. reports initial onset of symptoms was 5 years ago for the LUE shldr. , however, symptoms in the RUE shldr. did not develop until a few years after CARI. Pt. reports CARI was 5 years ago while eating at [employer] w/ her when pt. went to stand up out of the chair, then slipping and falling between two small square tables and trying to catch herself on her elbows on each table which then her arms extended overhead after landing on the floor. Pt. describes symptoms in the shoulder as an ache that worsen w/ activity including fastening her bra strap linger , rolling over in bed, brushing her hair, and operating the steering wheel. Pt. reports having some symptom relief w/ OTC Tylenol and resting from activity. Recent diagnostic imaging( radiograph) of the LUE shldr. indicates osteoarthritis and torn RC per pt. report. Pt. denies having any recent diagnostic imaging for the RUE shldr., nor steroid injections for BUEs. Pt. denies having any numbness/ tingling into neither BUEs. Current medications include Duloxetine, Lisinopril, Pravastatin, and Calcium supplement. PMH includes Osteoperosis, Osteoarthritis, Hypertension, DM-II, S/P L- sided Lumpectomy d/t hx. breast cancer, and Hysterectomy. New diagnosis of cancer in past 12 No months? Chief Complaint Pain,Stiff,Weakness Symptom Type Ache,Throb,Dull,Shooting Symptoms Relieved By Rest/Positioning,Heat,OTC Meds Symptoms Aggravated By Supine,Physical Activity, Lifting Prior Functional Limitations None Current Functional Limitations Reaching,Lifting,Housework, Dressing,Desk Work/Reading, Driving,Sleeping,Recreation Activity Symptom Description Constant but Variable,Activity Dependent Level of pain today (0-10) 2 Pain scale - at its best (0-10) 1 Pain scale - at its worst (0-10) 6 Shoulder/Elbow Eval Shoulder Objective Measurements Palpation Tenderness tenderness over the bicipital tendon bilateral shoulder exam standard tenderness over the SA bursa shoulder bilateral exam standard Shoulder Palpation Findings Tenderness Shoulder Palpation Overall Comment grade 3 +TTP to assessment above Posture Shoulder Posture Sitting Position (L) Rounded,(R) Rounded,(L) Forward,(R) Forward Shoulder Posture Standing Position (L) Rounded,(R) Rounded,(L) Forward,(R) Forward Scapula Posture Sitting Position (L) Protracted,(R) Protracted Scapular Posture Standing Position (L) Protracted,(R) Protracted Flexibilty Deficits Latissmus Dorsi Muscle Length (R) Moderate Tightness,(L) Severe Tightness Pectoralis Minor Muscle Length (R) Severe Tightness,(L) Severe Tightness Pectoralis Major Muscle Length (R) Severe Tightness,(L) Severe Tightness Shoulder External Rotators Muscle Length (R) Moderate Tightness,(L) Severe Tightness Shoulder Internal Rotators Muscle Length (R) Moderate Tightness,(L) Severe Tightness Teres Major Muscle Length (R) Moderate Tightness,(L) Severe Tightness Upper Trapezius Muscle Length (R) Severe Tightness,(L) Severe Tightness Levaetor Scapulae Muscle Length (R) Severe Tightness,(L) Severe Tightness Shoulder ROM Right Shoulder ROM Limitations Soft Tissue Tightness,Muscle Weakness,Muscle Tone,Pain Shoulder Abduction Active Range of 90 Motion (degrees) Shoulder Abduction Passive Range of 113 Motion (degrees) Shoulder Flexion Active Range of Motion 112 (degrees) Query Text: Shoulder Flexion Passive Range of Motion 119 (degrees) Shoulder External Rotation Active Range 23 of Motion (degrees) Shoulder External Rotation Passive Range 29 of Motion (degrees) Shoulder Internal Rotation Active Range 61 of Motion (degrees) Shoulder Internal Rotation Passive Range 69 of Motion (degrees) Shoulder Extension Active Range of 55 Motion (degrees) pain with active ROM shoulder exam right standard pain with passive ROM shoulder exam right standard decreased ROM shoulder exam standard right Left Shoulder ROM Limitations Soft Tissue Tightness,Muscle Weakness,Muscle Tone,Pain Shoulder Abduction Active Range of 68 Motion (degrees) Shoulder Abduction Passive Range of 89 Motion (degrees) Shoulder Flexion Active Range of Motion 98 (degrees) Query Text: Shoulder Flexion Passive Range of Motion 109 (degrees) Shoulder External Rotation Active Range 8 of Motion (degrees) Shoulder External Rotation Passive Range 11 of Motion (degrees) Shoulder Internal Rotation Active Range 55 of Motion (degrees) Shoulder Internal Rotation Passive Range 57 of Motion (degrees) Shoulder Extension Active Range of 55 Motion (degrees) pain with active ROM shoulder exam left standard pain with passive ROM shoulder exam left standard decreased ROM shoulder exam standard left Shoulder MMT Bilateral Anterior Deltoid Strength Grade 4 Good Lower Trapezius Strength Grade 4- Good- Middle Trapezius Strength Grade 4- Good- Rhomboids Strength Grade 4 Good Serratus Anterior Strength Grade 4 Good Upper Trapezius/Levator Scapulae 4 Good Shoulder Abduction Strength Grade 4- Good- Shoulder Extension Strength Grade 4 Good Shoulder Flexion Strength Grade 4 Good Infraspinatus/Teres Minor Strength Grade 3+ Fair+ Shoulder External Rotation Strength 3+ Fair+ Grade Shoulder Internal Rotation Strength 4- Good- Grade Shoulder Strength Patient Testing Sitting Position Shoulder Muscle Tone Shoulder Flexor Muscle Tone Description Severe Hypertonicity Shoulder Extensors Muscle Tone Severe Hypertonicity Description Shoulder Lateral Rotator Muscle Tone Severe Hypertonicity Description Shoulder Special Tests Shoulder Drop Arm Test Positive Left,Positive Right Shoulder Cross-Over Impingement Test Negative Left,Negative Right Shoulder Burr-Jeremy Impingement Negative Left,Negative Right Test Elbow Objective Measurements Accessory Movements Bilateral Shoulder Girdle Accessory Movements that Glenohumeral Ant [place], Elicit Symptoms Glenohumeral Inf [place] Outpatient Therapy Assessment Impairments Problems/Impairmments Palpation Tenderness,Impaired Range of Motion,Impaired Strength,Impaired Driving, Impaired Lifting,Impaired Dressing,Impaired Shower/ Bathing,Impaired Household Care,Impaired Recreational Activities,Impaired Desk/ Computer Activities,Subjective C/O Pain,Impaired Self Care/ Self Management Prognosis Rehab Potential Good Comment w/ HEP compliancy Clinical Impression Consistent with Diagnosis Yes 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 >90% A/PROM grossly, LUE shldr. >80% norms A/PROM grossly Increase Strength Yes: 4+ to 5/5 BUE shldr. MMT scores grossly Increase Ability to Drive/Ride in Car Yes: improved ability using LUE w/ steering wheel Restore Ability to Lift Objects to Yes Shoulder Level Improve Ability to Dress Self Yes: improved ability to don/ doff bra strap liner w/ RUE behind back Improve Quick Dash Score Yes Decrease Subjective C/O Pain Yes: worse:1-2/10 Improve Self Care/Self Management Yes: improved turning over in bed during the night, improved ability to fix hair Patient to be Ind w/ Advanced HEP Yes Outpatient Therapy Plan of Care Treatment Plan May Include Therapeutic Exercise Including Home Yes Exercise Program Manual Therapy Techniques Yes Neuromuscular Re-education Yes Therapeutic Activities to Return to Yes Previous Functional/Work Level ADL/Self Care Education Yes Thermal Modalities Yes Electrical Stimulation Yes Ultrasound/Phonophoresis Yes Iontophoresis Yes Vasopneumatic Compression Pump Yes Massage Yes Eval/Re-Eval Yes Frequency Times per week 2 Duration Number of Weeks 4-6 Addendums This patient is a candidate for social No or vocational rehab? Patient/Guardian verbally acknowledges Yes understanding of treatment program and consents to further treatment? Patient/Guardian verbally acknowledges Yes understanding of diagnosis, prognosis and goals for treatment? Eval Complexity PT Charges 12085 - Moderate Complexity PHYSICIAN CERTIFICATION: I certify the specified therapy services for Janey Askew are required, authorized, and reviewed every 30 days.
== END 2023-06-07 11:46 | disposition home or self-care (01) ==
LOC: PT 10:00
PROVIDERS: Visit Provider Internal Medicine Adolescent Medicine
DX: M25.511 Pain in right shoulder (principal); M25.512 Pain in left shoulder
CPT/HCPCS: 97010; 97014; 97110; 97140; 97163; 97530; G0283

== ENCOUNTER 2023-10-06 11:36 | Outpatient (CLI) | payer MEDICARE, OTHER, SELFPAY ==
[2023-10-06] MEDS: DENOSUMAB 60 MG/ML SYRINGE SQ (11:50)
[2023-10-06 11:55] VITALS: BP 131/68; PULSE 94; RESP 18; TEMP 36.6; O2SAT 97
== END 2023-10-06 11:55 | disposition home or self-care (01) ==
PROVIDERS: PCP Internal Medicine Adolescent Medicine; Visit Provider Internal Medicine Adolescent Medicine
DX: M81.0 Age-related osteoporosis without current pathological fracture (principal)
CPT/HCPCS: 96372; J0897

== ENCOUNTER 2024-04-10 11:13 | Outpatient (CLI) | payer MEDICARE, OTHER, SELFPAY ==
[2024-04-10 11:34] VITALS: BP 137/71; PULSE 89; RESP 14; TEMP 36.6; O2SAT 99
[2024-04-10] MEDS: DENOSUMAB 60 MG/ML SYRINGE SUBCUT (11:34)
== END 2024-04-10 11:40 | disposition home or self-care (01) ==
LOC: INF 11:15
PROVIDERS: PCP Internal Medicine Adolescent Medicine; Visit Provider Internal Medicine Adolescent Medicine
DX: M81.0 Age-related osteoporosis without current pathological fracture (principal)
CPT/HCPCS: 96372; J0897

== ENCOUNTER 2024-10-20 10:40 | Outpatient (CLI) | payer MEDICARE, OTHER, SELFPAY ==
--- OUTSIDE RECORDS SUMMARY | 2024-09-04 14:10 | XMS_ITS | Encounter Summary ---
Author Organization [facility] Address [address] [id number] Care Team Providers Care Driver License Agent Name Role Phone Jacky Kemp MD Primary Care Provider [phone] Reason for Referral * Clinic-Administered Medication (Routine) - Pending Review Specialty Diagnoses / Procedures Referred By Deion hudson Referred To Contact Diagnoses Primary localized osteoarthritis of left knee Win Pacheco MD [facility] [address] Phone: tel: fax: Referral ID Status Reason Start Date Expiration Date V isits Requested Visits Authorized [id number] Pending Review 09/04/2024 03/06/2026 1 1 Reason for Visit * Reason Comments Injections * Other Medical (Routine) - Closed Specialty Diagnoses / Procedures Referred By Deion hudson Referred To Contact Sports Medicine Diagnoses Primary localized osteoarthritis of left knee Procedures Sports Medicine - USG Injection, Large Joint Win Pacheco MD [address] [address] [address] Phone: tel: fax: [facility] [address] [address] Phone: tel: fax: Referral ID Status Reason Start Date Expiration Date Visits Re quested Visits Authorized [id number] Closed 08/25/2024 02/24/2026 1 1 Encounter Details Date Type Department Care Team (Late st Contact Info) Description 09/04/2024 2:10 PM EDT Procedure Visit [facility] Medicine [address], [address] [place] [address] Win Pacheco MD [address] [place] [address] Primary localized osteoarthritis of left knee (Primary Dx) Social History Tobacco Use Types Packs/Day Years Used Date Smoking Tobacco: Never Assessed Comments Unknown Sex and Gender Information Value Date Recorded Sex Assigned at Not on file Legal Sex Female 7:42 PM EDT Gender Identity Not on file Sexual Orientation Not on file documented as of this encounter Last Filed Vital Signs Vital Sign Reading Time Taken Comments Blood Pressure 145/79 09/04/2024 2:06 PM EDT Pulse - - Temperature - - Respiratory Rate - - Oxygen Saturation - - Inhaled Oxygen Concentration - - Weight 67.1 kg (148 lb) 09/04/2024 2:06 PM EDT Height 157.5 cm (5' 2 ) 09/04/2024 2:06 PM EDT Body Mass Index 27.07 09/04/2024 2:06 PM EDT documented in this encounter Miscellaneous Notes * Progress Notes - Nataly Moyer, - 09/04/2024 2:10 PM EDTAssociated Order(s): Sports Medicine - USG Injection, Large Joint: L knee Pre-Procedure Diagnose(s): Primary localized osteoarthritis of left knee Post-Procedure Diagnose(s): Primary localized osteoarthritis of left knee Images from the original note were not included. Sports Medicine Clinic Note Encounter Date: 09/04/2024 Subjective: Chief Complaint: Left knee pain History of Present Illness: Janey Askew is a 79 y.o. year old female here for follow up on left knee pain. She was last seen here 07/13 as a new patient with acute flare of primary osteoarthritis of the knee. She received a palpation guided corticosteroid injection at that visit with significant relief but it only worked about2 weeks. She is here for WARE injection. She has been wearing her 8aweek which has been helpful. Served as independent program medical director: Yes, ancillary history provided by patient's daughter.. Problem List does not have a problem list on file. Medications Patient's Medications New Prescriptions No medications on file Previous Medications BUPROPION XL (WELLBUTRIN XL) 150 MG 24 HR TABLET Take 1 tablet (150 mg) by mouth 1 (one) time each day. CELECOXIB (CELEBREX) 50 MG CAPSULE Take 1 capsule by mouth 2 times a day. DICLOFENAC (VOLTAREN) 1 % TOPICAL GEL Place 2-4 g on the skin 4 (four) times a day as needed (pain). Apply as directed to knee DULOXETINE (CYMBALTA) [address] CAPSULE FAMOTIDINE (PEPCID) 20 MG TABLET Take 1 tablet (20 mg) by mouth twice a day. LISINOPRIL-HYDROCHLOROTHIAZIDE 10-12.5 MG TABLET OMEPRAZOLE (PRILOSEC) [address] CAPSULE Take 1 capsule (20 mg) by mouth twice a day. PRAVASTATIN (PRAVACHOL) 20 MG TABLET Modified Medications No medications on file Discontinued Medications No medications on file Surgical History Surgical History[1] Allergies Allergies[2] Objective: Visit Vitals BP (!) 145/79 Ht 1.575 m (5' 2 ) Wt 67.1 kg (148 lb) BMI 27.07 kg/m?? BSA 1.71 m?? GEN: Alert, cooperative, in no acute distress. MSK: Left Knee --Inspection: No erythema or ecchymosis. small joint effusion. --Palpation: TTP medial and lateral joint lines --Range of motion: Knee: 0-135 degrees in flexion and extension of the knee. --Strength: Knee: 5/5 strength with flexion and extension of the knee. --Neurovascular: Sensation intact to light touch. 2+ DP and PT pulses. Imaging: previous plain radiographs of the left knee. was personally reviewed by myself and Dr. Pacheco which was significant for tricompartmental osteoarthritic changes. No fractures or dislocations. Assessment and Plan: Diagnosis Plan 1. Primary localized osteoarthritis of left knee Sports Medicine - USG Injection, Large Joint: L knee hylan (Synvisc) injection 48 mg lidocaine (Xylocaine) 1 % injection 50 mg Orders Placed This Encounter hylan (Synvisc) injection 48 mg lidocaine (Xylocaine) 1 % injection 50 mg In summary, patient is a 79 y.o. year old female who presents to clinic for worsening left knee pain, She did have a bit of relief with a steroid injection that only lasted about 2 week. Treatment options discussed today including proceeding with his WARE, geniculate nerve block, surgical evaluation.With shared decision making will proceed with USG synvisc one injection today. If not improving in 4-6 weeks, we will have her meet with Dr. Tierney for surgical evaluation for TKA. If she does well, can consider repeating this WARE in 6 months. Will have our bracing specialist correct the fit of her brace today. Patient verbalized understanding of the plan and were agreeable with no further questions. After discussing risks and benefits, including but not limited to bleeding, infection and worseningpain, the patient wished to proceed with the procedure today. See procedure note. Post-injection care instructions were provided. Sports Medicine - USG Injection, Large Joint: L knee Indications: pain Details: 22 G needle, ultrasound-guided superolateral approach Medications: 50 mg lidocaine 1 %; 48 mg hylan 48 MG/6ML Outcome: tolerated well, no immediate complications US Guided Procedure Note: Indication: Knee pain Procedure: Sonographically guided left knee Synvisc-one injection Informed Consent: Following denial of allergy and review of potential side effects and complications including, but not limited to, infection, allergic reaction, local tissue breakdown, systemic effects of corticosteroids, elevation of blood glucose, injury to soft tissue and/or nerves and seizure,the patient indicated understanding and agreed to proceed. Procedural pause conducted to verify: correct patient identity, procedure to be performed and, as applicable, correct side and site, correct patient position, availability of any special equipment orother special requirements. Justification for use of ultrasound guidance: The use of direct sonographic visualization of the needle (rather than a non-guided injection) was required to ensure accurate injection placement for diagnostic specificity, to maximize clinical efficacy and for safety purposes to minimize risk of bleeding or injury to nearby neurovascular structures. Technique: The procedure was carried out under sterile technique utilizing a sterile ultrasound transducer cover and sterile ultrasound gel. Pre-procedural scanning was performed to determine optimalneedle approach for the procedure. The patient was prepped and draped in the usual sterile fashion. Patient position: supine Approach: in plane Local anesthesia: 5 mL 1% Lidocaine Aspiration/Injection: Live sonographic guidance with a 12-5 mHz linear array transducer was used throughout the procedure. A 25g 2 inch needle was used for local anesthesia and was guided into the supra-patellar recess. Then using a 22g 1.5inch needle was guided into the suprapatellar recess and after reconfirmation of needle placement, 6cc of Synvisc-one was injected in to the knee joint. Post-Procedure Instructions: The patient tolerated the procedure well without complication and was discharged in good condition after a short observation period. The patient was instructed to avoid submerging the procedure site in water for 48-72 hours. The patient was instructed to contact me withany questions pertaining to the procedure and to inform me of the results of the procedure in approximately 7-10 days, as needed. Questions regarding general management should be directed to the patient's referring provider and the patient should keep all previously scheduled follow up appointments. Multiple hawley images were saved. Impression: Successful sonographically-guided left knee Synvisc-one injection. Procedure, treatment alternatives, risks and benefits explained, specific risks discussed. Consent was given by the patient. Immediately prior to procedure a time out was called to verify the correctpatient, procedure, equipment, it support specialist and site/side marked as required. Patient was prepped and draped in the usual sterile fashion. Follow up PRN Records Reviewed: Plain Radiographs. and Prior office visits. Electronically Signed by: Nataly Moyer DO - 09/04/2024 - 3:29 PM This note was partially generated using [employer] Direct system, and there may be some incorrect words, spellings, and punctuation that were not noted in checking the note before saving. [1] No past surgical history on file. [2] No Known Allergies Cosigned by Win Pacheco MD at 09/04/2024 4:00 PM EDT Associated attestation - Win Pacheco MD - 09/04/2024 4:00 PM EDT I saw and evaluated the patient with the resident/fellow. I discussed the case with the resident/fellow and agree with the findings and plan as documented. I was present for the entirety of the procedure(s). documented in this encounter Plan of Treatment Upcoming Encounters Date Type Department Care Team (Late st Contact Info) Description 10/23/2024 10:20 AM EDT Office Visit [facility] Medicine [address], [address] [place] [address] Win Pacheco MD [address] [place] [address] documented as of this encounter Procedures Procedure Name Priority Date/Time Associated Diagnosis Comments NE ARTHROCENTESIS ASPIR&/INJ MAJOR JT/BURSA W/US Routine 09/04/2024 2:10 PM EDT Primary localized osteoarthritis of left knee documented in this encounter Results * NE ARTHROCENTESIS ASPIR&/INJ MAJOR JT/BURSA W/US (09/04/2024 2:10 PM EDT) Narrative Win Pacheco MD - 09/04/2024 2:10 PM EDT Win Pacheco MD 09/04/2024 4:00 PM Sports Medicine - USG Injection, Large Joint: L knee Indications: pain Details: 22 G needle, ultrasound-guided superolateral approach Medications: 50 mg lidocaine 1 %; 48 mg hylan 48 MG/6ML Outcome: tolerated well, no immediate complications US Guided Procedure Note: Indication: Knee pain Procedure: Sonographically guided left knee Synvisc-one injection Informed Consent: Following denial of allergy and review of potential side effects and complications including, but not limited to, infection, allergic reaction, local tissue breakdown, systemic effects of corticosteroids, elevation of blood glucose, injury to soft tissue and/or nerves and seizure, the patient indicated understanding and agreed to proceed. Procedural pause conducted to verify: correct patient identity, procedure to be performed and, as applicable, correct side and site, correct patient position, availability of any special equipment or other special requirements. Justification for use of ultrasound guidance: The use of direct sonographic visualization of the needle (rather than a non-guided injection) was required to ensure accurate injection placement for diagnostic specificity, to maximize clinical efficacy and for safety purposes to minimize risk of bleeding or injury to nearby neurovascular structures. Technique: The procedure was carried out under sterile technique utilizing a sterile ultrasound transducer cover and sterile ultrasound gel. Pre-procedural scanning was performed to determine optimal needle approach for the procedure. The patient was prepped and draped in the usual sterile fashion. Patient position: supine Approach: in plane Local anesthesia: 5 mL 1% Lidocaine Aspiration/Injection: Live sonographic guidance with a 12-5 mHz linear array transducer was used throughout the procedure. A 25g 2 inch needle was used for local anesthesia and was guided into the supra-patellar recess. Then using a 22g 1.5inch needle was guided into the suprapatellar recess and after reconfirmation of needle placement, 6cc of Synvisc-one was injected in to the knee joint. Post-Procedure Instructions: The patient tolerated the procedure well without complication and was discharged in good condition after a short observation period. The patient was instructed to avoid submerging the procedure site in water for 48-72 hours. The patient was instructed to contact me with any questions pertaining to the procedure and to inform me of the results of the procedure in approximately 7-10 days, as needed. Questions regarding general management should be directed to the patient's referring provider and the patient should keep all previously scheduled follow up appointments. Multiple hawley images were saved. Impression: Successful sonographically-guided left knee Synvisc-one injection. Procedure, treatment alternatives, risks and benefits explained, specific risks discussed. Consent was given by the patient. Immediately prior to procedure a time out was called to verify the correct patient, procedure, equipment, it support specialist and site/side marked as required. Patient was prepped and draped in the usual sterile fashion. us Win Pacheco MD IN CLINIC/BEDSIDE ORDERABLES F inal Result documented in this encounter Visit Diagnoses Diagnosis Primary localized osteoarthritis of left knee- Primary documented in this encounter Administered Medications Inactive Administered Medications - up to 3 most recent administrations Medication Order MAR Action Action Date Dose Rate Site hylan (Synvisc) injection 48 mg 48 mg, Intra-articular, Once PRN Procedure, 1 dose, Starting on Wed09/04/24 at 1410, Until Wed09/04/24 at 1410, RoutineIndications:Primary localized osteoarthritis of left knee Given 09/04/2024 2:10 PM EDT 48 mg lidocaine (Xylocaine) 1 % injection 50 mg 50 mg, Intra-articular, Once PRN Procedure, 1 dose, Starting on Wed09/04/24 at 1410, Until Wed09/04/24 at 1410, RoutineIndications:Primary localized osteoarthritis of left knee Given 09/04/2024 2:10 PM EDT 50 mg documented in this encounter Additional Health Concerns Assessment Noted Time A fall risk assessment has been complete d for the patient 09/04/2024 2:06 PM EDT A Body Mass Index follow-up plan has been documented for the patient 09/04/2024 4:00 PM EDT documented as of this encounter Care Teams Driver License Agent Relationship Specialty Start Date End Date Jacky Kemp MD [address] [place] [address] PCP - General Internal Medicine 07/07/24 documented as of this encounter
--- OUTSIDE RECORDS SUMMARY | 2024-10-20 10:45 | XMS_ITS | Encounter Summary ---
Author Organization [facility] Address [address] [id number] Care Team Providers Care Dialysis Tech Name Role Phone Jacky Kemp MD Primary Care Provider [phone] Reason for Visit * Reason Onset Date Comments HCN - Patient Message 09/26/2024 Encounter Details Date Type Department Care Team (Late st Contact Info) Description 09/26/2024 Telephone [facility] Surgery [facility] Medicine [address], [address] [place] [address] Win Pacheco MD [address] [place] [address] HCN - Patient Message Social History Tobacco Use Types Packs/Day Years Used Date Smoking Tobacco: Never Assessed Comments Unknown Sex and Gender Information Value Date Recorded Sex Assigned at Not on file Legal Sex Female 7:42 PM EDT Gender Identity Not on file Sexual Orientation Not on file documented as of this encounter Miscellaneous Notes * Telephone Encounter - Grecia Moser - 09/26/2024 2:23 PM EDT Spoke with patient regarding geniculate nerve or TKA. Patient is going to consult with daughter andcall back about which referral she would like * Telephone Encounter - Mitchell Morin - 09/26/2024 1:53 PM EDT Clinical Concern/Question Reason for Call: Dr. Pacheco pt is requesting a call back from clinical staff. She states the steroidinjection provided relief for around 2 weeks, and the Synvisc injection didn't provide any significant relief. She would like to discuss other treatment options. Best contact number: [phone] (home) Optimal time of day to reach caller: ANYTIME Additional comments/information from caller: None Note: Please do not reply to this message. Follow-up communication and further actions as a result of this message need to be communicated with the patient directly, if the patient is not active onMyChart. If the patient is active on MyChart, they will receive notification of the communication/outcome via [employer]. documented in this encounter Plan of Treatment Upcoming Encounters Date Type Department Care Team (Late st Contact Info) Description 10/23/2024 10:20 AM EDT Office Visit [facility] Medicine [address], [address] [place] [address] Win Pacheco MD [address] [place] [address] documented as of this encounter Visit Diagnoses Not on filedocumented in this encounter Additional Health Concerns Assessment Noted Time A fall risk assessment has been complete d for the patient 09/04/2024 2:06 PM EDT A Body Mass Index follow-up plan has been documented for the patient 09/04/2024 4:00 PM EDT documented as of this encounter Care Teams Dialysis Tech Relationship Specialty Start Date End Date Jacky Kemp MD [address] [place] [address] PCP - General Internal Medicine 07/07/24 documented as of this encounter
--- OUTSIDE RECORDS SUMMARY | 2024-10-20 10:45 | XMS_ITS | Clinical Summary ---
Author Organization [facility] Address [address] [place] [address] Care Team Providers Care Bilingual Trainer Name Role Phone Jacky Kemp MD Primary Care Provider [phone] Allergies No known active allergies Medications buPROPion XL (Wellbutrin XL) 150 MG 24 hr tablet Take 1 tablet (150 mg) by mouth 1 (one) time each day. 04/21/2024 Active DULoxetine (Cymbalta) [address] capsule 06/20/2024 Activ e famotidine (Pepcid) 20 MG tablet Take 1 tablet (20 mg) by mouth twice a day. 04/24/2024 Active lisinopril-hydr oCHLOROthiazide 10-12.5 MG tablet 05/22/2024 Active omeprazole (PriLOSEC) [address] capsule Take 1 capsule (20 mg) by mouth twice a day. 05/19/2024 Active pravastatin (Pravachol) 20 MG tablet 06/20/2024 Active diclofenac (Voltaren) 1 % topical gel Place 2-4 g on the skin 4 (four) times a day as needed (pain). Apply as directed to knee 100 g 1 07/13/2024 Active celecoxib (CeleBREX) 50 MG capsule Take 1 capsule by mouth 2 times a day. Active Encounters Date Type Department Care Team Description 09/26/[address] [facility]opa[facility] Surgery [facility] Sports Medicine [address], [address] [place] [address] Win Pacheco MD HCN - Patient Message 09/04/2024 2:10 PM EDT Procedure Visit [facility]opa[facility] Surgery [facility] Sports Medicine [address], [address] [place] [address] Win Pacheco MD Primary localized osteoarthritis of left knee (Primary Dx) 09/04/2024 Orders Only External Location [address] [place] [address] Provider, External 09/04/2024 Travel 08/25/[address] [facility] Surgery [facility] Medicine [address] [place] [address] Nayla Mccray DO Primary localized osteoarthritis of left knee (Primary Dx) 08/18/[address] [facility]opa[facility] Surgery [facility] Sports Medicine [address] [place] [address] Win Pacheco MD HCN - Patient Message from Last 3 Months Social History Tobacco Use Types Packs/Day Years Used Date Smoking Tobacco: Never Assessed Comments Unknown Sex and Gender Information Value Date Recorded Sex Assigned at Not on file Legal Sex Female 7:42 PM EDT Gender Identity Not on file Sexual Orientation Not on file Last Filed Vital Signs Vital Sign Reading Time Taken Comments Blood Pressure 145/79 09/04/2024 2:06 PM EDT Pulse - - Temperature - - Respiratory Rate - - Oxygen Saturation - - Inhaled Oxygen Concentration - - Weight 67.1 kg (148 lb) 09/04/2024 2:06 PM EDT Height 157.5 cm (5' 2 ) 09/04/2024 2:06 PM EDT Body Mass Index 27.07 09/04/2024 2:06 PM EDT Plan of Treatment Upcoming Encounters Date Type Department Care Team (Late st Contact Info) Description 10/23/2024 10:20 AM EDT Office Visit [facility]opa[facility] Surgery [facility] Sports Medicine [address], [address] [place] [address] Win Pacheco MD [address] [place] [address] Health Maintenance Due Date Last Done Comments [facility]-Bone Density Scan 1943 [facility]-Depression Screening 1943 [facility]-Medicare Annual Wellness (AWV) 1943 [facility]-/Child/Adol SDOH Screenings 1943 [facility]- SDOH Screenings 1961 [facility]-Adult SDOH Screenings 1961 [facility]-DTaP,Tdap,and Td Vaccines (1 - Tdap) 1962 [id number] Vaccine (4 - season) 2024 01/22/2022, 07/03/2020, 06/06/2020 [facility]-Influenza Vaccine (Season Ended) 2025 04/13/2023, 01/22/2022, 02/16/2020, Additional history exists [facility]-Zoster Vaccines Completed 04/13/2023, [facility]-Pneumococcal Vaccine: 50+ Years Completed 12/07/2023 [facility]-RSV Vaccine: 60+ Years or Completed 12/07/2023 [facility]-Obesity Intervention Completed 09/04/2024, 10/2024 HPV Vaccines Aged Out No longer eligi ble based on patient's age to complete this topic [facility]-HIB Vaccines Aged Out No longer e ligible based on patient's age to complete this topic [facility]-Hepatitis A Vaccines Aged Out No longer eligible based on patient's age to complete this topic [facility]-IPV Vaccines Aged Out No longer e ligible based on patient's age to complete this topic [facility]-Rotavirus Vaccines Aged Out No lo nger eligible based on patient's age to complete this topic Procedures Procedure Name Priority Date/Time Associated Diagnosis Comments MT ARTHROCENTESIS ASPIR&/INJ MAJOR JT/BURSA W/US Routine 09/04/2024 2:10 PM EDT Primary localized osteoarthritis of left knee POC ULTRASOUND 09/04/2024 from Last 3 Months Results * MT ARTHROCENTESIS ASPIR&/INJ MAJOR JT/BURSA W/US (09/04/2024 2:10 [...] to verify the correct patient, procedure, equipment, product support rep and site/side marked as required. Patient was prepped and draped in the usual sterile fashion. Win Pacheco MD IN CLINIC/BEDSIDE ORDERABLES F inal Result * POC Imaging (09/04/2024) Anatomical Region Laterality Modality Pelvis Other 09/04/2024 External Provider IMG POINT OF CARE ULTRASOUND F inal Result from Last 3 Months Insurance MEDICARE [facility] Care Teams Bilingual Trainer Relationship Specialty Start Date End Date Jacky Kemp MD [address] [place] [address] PCP - General Internal Medicine 07/07/24
--- OUTSIDE RECORDS SUMMARY | 2024-10-20 10:45 | XMS_ITS | Encounter Summary ---
Author Organization [facility] Address [address] [id number] Care Team Providers Care Meter Reader Name Role Phone Jacky Kemp MD Primary Care Provider [phone] Reason for Referral * Other Medical (Routine) - Closed Specialty Diagnoses / Procedures Referred By Deion hudson Referred To Contact Sports Medicine Diagnoses Primary localized osteoarthritis of left knee Procedures Sports Medicine - USG Injection, Large Joint Win Pacheco MD [address] [place] [address] [place] [address] Phone: tel: fax: [facility] [address], [address] [place] [address] Phone: tel: fax: Referral ID Status Reason Start Date Expiration Date Visits Re quested Visits Authorized [id number] Closed 08/25/2024 02/24/2026 1 1 Encounter Details Date Type Department Care Team (Late st Contact Info) Description 08/25/2024 Orders Only [facility] [address], [address] [place] [address] Nayla Mccray, DO [address] [place], [place] [id number] Primary localized osteoarthritis of left knee (Primary Dx) Social History Tobacco Use Types Packs/Day Years Used Date Smoking Tobacco: Never Assessed Comments Unknown Sex and Gender Information Value Date Recorded Sex Assigned at Not on file Legal Sex Female 7:42 PM EDT Gender Identity Not on file Sexual Orientation Not on file documented as of this encounter Plan of Treatment Upcoming Encounters Date Type Department Care Team (Late st Contact Info) Description 10/23/2024 10:20 AM EDT Office Visit [facility] [address], [address] [place] [address] Win Pacheco MD [address] [place] [address] documented as of this encounter Results * OK ARTHROCENTESIS ASPIR&/INJ MAJOR JT/BURSA W/US (09/04/2024 2:10 [...] to verify the correct patient, procedure, equipment, manager decision support and site/side marked as required. Patient was prepped and draped in the usual sterile fashion. Win Pacheco MD IN CLINIC/BEDSIDE ORDERABLES F inal Result documented in this encounter Visit Diagnoses Diagnosis Primary localized osteoarthritis of left knee- Primary Primary localized osteoarthritis of left knee- Primary documented in this encounter Additional Health Concerns Assessment Noted Time A fall risk assessment has been complete d for the patient 07/13/2024 9:38 AM EST A Body Mass Index follow-up plan has been documented for the patient 07/17/2024 11:08 AM EDT documented as of this encounter Care Teams Meter Reader Relationship Specialty Start Date End Date Jacky eKmp MD [address] [place] [id number] PCP - General Internal Medicine 07/07/24 documented as of this encounter
--- OUTSIDE RECORDS SUMMARY | 2024-10-20 10:45 | XMS_ITS | Encounter Summary ---
Author Organization [facility] Address [address] [place] [address] Care Team Providers Care Manager Of Selection And Assessment Name Role Phone Jacky Kemp MD Primary Care Provider [phone] Encounter Details Date Type Department Care Team (Latest Contact Info) Description 09/04/2024 Travel Social History Tobacco Use Types Packs/Day Years [...] [facility] [address], [address] [place] [address] Win Pacheco MD [address] [place] [address] documented as of this encounter Visit Diagnoses Not on filedocumented in this encounter Additional Health Concerns Assessment Noted Time A fall risk assessment has been complete d for the patient 09/04/2024 2:06 PM EDT A Body Mass Index follow-up plan has been documented for the patient 09/04/2024 4:00 PM EDT documented as of this encounter Care Teams Manager Of Selection And Assessment Relationship Specialty Start Date End Date Jacky Kemp MD [address] [place] [address] PCP - General Internal Medicine 07/07/24 documented as of this encounter
--- OUTSIDE RECORDS SUMMARY | 2024-10-20 10:45 | XMS_ITS | Encounter Summary ---
Author Organization [facility] Address [address] [place] [address] Care Team Providers Care Air Quality Consultant Name Role Phone Jacky Kemp MD Primary Care Provider [phone] Encounter Details Date Type Department Care Team (Late Contact Info) Description 09/04/2024 Orders Only External Location [address] [place] [address] Provider, External Social History Tobacco Use Types Packs/Day Years [...] Description 10/23/2024 10:20 AM EDT Office Visit [facility] [address] [facility] [address] [facility] [address] [facility], [address] [place] [address] Win Pacheco MD [address] [facility] [address] [place] [address] documented as of this encounter Procedures Procedure Name Priority Date/Time Associated Diagnosis Comments POC ULTRASOUND 09/04/2024 documented in this encounter Results * POC Imaging (09/04/2024) Anatomical Region Laterality Modality Pelvis Other 09/04/2024 us External Provider IMG POINT OF CARE ULTRASOUND F inal Result documented in this encounter Visit Diagnoses Not on filedocumented in this encounter Additional Health Concerns Assessment Noted Time A fall risk assessment has been complete d for the patient 09/04/2024 2:06 PM EDT A Body Mass Index follow-up plan has been documented for the patient 09/04/2024 4:00 PM EDT documented as of this encounter Care Teams Air Quality Consultant Relationship Specialty Start Date End Date Jacky Kemp MD [address] [place] [address] PCP - General Internal Medicine 07/07/24 documented as of this encounter
--- OUTSIDE RECORDS SUMMARY | 2024-10-20 10:45 | XMS_ITS | Encounter Summary ---
Author Organization [facility] Address [address] [place] [address] Care Team Providers Care Lpn Private Duty Name Role Phone Jacky Kemp MD Primary Care Provider [phone] Reason for Visit * Reason Onset Date Comments HCN - Patient Message 08/18/2024 Encounter Details Date Type Department Care Team (Late st Contact Info) Description 08/18/2024 Telephone [facility] Medicine [address], [address] [place] [address] Win Pacheco MD [address] [place] [address] HCN - Patient Message Social [...] * Telephone Encounter - Grecia Moser - 08/25/2024 9:56 AM EDT Spoke with patient. Patient called and scheduled for WARE * Telephone Encounter - Kaity Osei - 08/21/2024 10:49 AM EDT Msg sent to [place] * Telephone Encounter - Kaity Osei - 08/18/2024 3:31 PM EDT Patient would like Dr Pacheco's opinion on the WARE gel injection as next step or should she talk to a [facility] surgeon - will discuss with him next week * Telephone Encounter - Zaria Falcon - 08/18/2024 2:51 PM EDT Clinical Concern/Question LAN Reason for Call: Patient calling stating she had the injection on 07/13 and it worked perfectly but only for 13 days. She said she is having pain again and is wearing the brace. She is asking if she should try gel injections next? She requests a nurse call her back to advise what her options are. Best contact number: [phone] (home) Optimal time of day to reach caller: ANYTIME Additional comments/information from caller: None Note: Please do not reply to this message. Follow-up communication and further actions as a result of this message need to be communicated with the patient directly, if the patient is not active onMyChart. If the patient is active on MyChart, they will receive notification of the communication/outcome via [email or web address]. documented in this encounter Plan of Treatment Upcoming Encounters Date Type Department Care Team (Late st Contact Info) Description 10/23/2024 10:20 AM EDT Office Visit [facility] Medicine [address] , [address] [place] [address] Win Pacheco MD [address] [place] [address] documented as of this encounter Visit Diagnoses Not on filedocumented in this encounter Additional Health Concerns Assessment Noted Time A fall risk assessment has been complete d for the patient 07/13/2024 9:38 AM EST A Body Mass Index follow-up plan has been documented for the patient 07/17/2024 11:08 AM EDT documented as of this encounter Care Teams Lpn Private Duty Relationship Specialty Start Date End Date Jacky Kemp MD [address] [place] [address] PCP - General Internal Medicine 07/07/24 documented as of this encounter
--- OUTSIDE RECORDS SUMMARY | 2024-10-20 10:46 | XMS_ITS | Clinical Summary ---
Author Organization [email or web address] Address [address] [place] [address] Care Team Providers Care Yoghurt Maker Name Role Phone Jacky Kemp MD Primary Care Provider + [phone] Allergies No known active allergies Medications DULoxetine (CYMBALTA) 60 MG capsule Take 1 capsule (60 mg total) by mouth daily. 2 Active lisinopril-hydr oCHLOROthiazide (PRINZIDE,ZESTO RETIC) 10-12.5 mg per tablet Take 1 tablet by mouth daily. 2 Active pravastatin (PRAVACHOL) 20 MG tablet Take 1 tablet (20 mg total) by mouth daily. 3 Active calcium carbonate-vitam in D3 (calcium-vitami n D) 500 mg(1,250mg) -200 unit per tablet Take 1 tablet by mouth 2 (two) times daily with breakfast and dinner. Active omeprazole (PriLOSEC) 20 MG capsule Take 1 capsule (20 mg total) by mouth 2 (two) times daily. 5 Active famotidine (PEPCID) 20 MG tablet Take 1 tablet (20 mg total) by mouth 2 (two) times daily. 4 Active buPROPion XL (WELLBUTRIN XL) 150 MG 24 hr tablet Take 1 tablet (150 mg total) by mouth daily. 4 Active Active Problems Problem Noted Date Diagnosed Date Malignant neoplasm of left b reast in female, estrogen receptor negative 05/29/2022 Cancer Staging:Clinical stage from 12/14/2007: cT1c, cN0, cM0, ER-, [place]-, HER2- - Unsigned Family History Medical History Relation Name Comments Emphysema Mother Heart failure Mother Relation Name Status Comments Father Mother Social History Tobacco Use Types Packs/Day Years Used Date Smoking Tobacco: Never Smokeless Tobacco: Never Tobacco Cessation:Counseling Given: Not Answered Alcohol Use Standard Drinks/Week Comments Never 0 (1 standard drink = 0.6 oz pur e alcohol) Interpersonal Safety Answer Date Record ed Family or friends hurt you Not on file 05/28 Family or friends insult you Not on file Family or friends threaten you Not on file 0 05/28/2023 Family or friends scream or curse at you Not on file 05/28/2023 Housing Stability Answer Date Recorded Living situation today Not on file Living situation problems Not on file 2023 Family and Community Support Answer Geo e Recorded Help with Day to Day Activities Not on file 05/28/2023 Feeling Lonely or Isolated Not on file 05/28 Educational Attainment Answer Date Joshua rded Speak language other than Ugandan at home Not on file 05/28/2023 Want help with school or training Not on file 05/28/2023 Depression Answer Date Recorded PHQ-2 Risk Not on file 05/28/2023 Disabilities Answer Date Recorded Difficulty concentrating Not on file 024 Difficulty doing errands alone Not on file 0 05/28/2023 Substance Use Answer Date Recorded Used prescription meds for non-medical reasons N ot on file 05/28/2023 Used illegal drugs past 12 months Not on file 05/28/2023 Comments Unknown Sex and Gender Information Value Date Recorded Sex Assigned at Not on file Legal Sex Female 6:48 PM CDT Gender Identity Not on file Sexual Orientation Not on file Last Filed Vital Signs Vital Sign Reading Time Taken Comments Blood Pressure 139/67 05/31/2024 1:12 PM EST Pulse 85 05/31/2024 1:12 PM EST Temperature 36.7 C (98 F) 05/31/2024 1:12 PM EST Respiratory Rate 18 05/31/2024 1:12 PM EST Oxygen Saturation 98% 05/31/2024 1:12 PM EST Inhaled Oxygen Concentration - - Weight 70.4 kg (155 lb 3.2 oz) 05/31/2024 1:12 P M EST Height - - Body Mass Index - - Plan of Treatment Upcoming Encounters Date Type Department Care Team (Late st Contact Info) Description 06/04/2025 1:15 PM EST Office Visit [facility] [address] [place] [address] Aaliyah Jimenez MD [address] [place] [address] Health Maintenance Due Date Last Done Comments Medicare Initial AWV G0438 DXA SCAN 1945 Depression Screening (12+) 1955 DTAP/TDAP/TD VACCINES (1 - Tdap) 1962 Pneumococcal 50+ years (1 of 1 - PCV) 1993 Shingles Vaccine (Zoster) (1 of 2) 1993 Respiratory Syncytial Virus (RSV) Adult or (1 - 1-dose 75+ series) 2018 COVID-19 VACCINE ( season) 2024 01/22/2022, 07/03/2020, 06/06/2020 Falls Risk Screening 05/10/2024 Influenza Vaccine (Season Ended) 2025 01/22/2022, 02/16/2020, 02/07/2019 Tobacco Cessation Counseling and Screening (12+) 05/31/2025 05/31/2024 Insurance MEDICARE PART A B Care Teams Yoghurt Maker Relationship Specialty Start Date End Date Jacky Kemp MD [address] [place] [address] PCP - General Adolescent Medicine 06/09/23
--- OUTSIDE RECORDS SUMMARY | 2024-10-20 10:46 | XMS_ITS | Referral Summary ---
Author Organization [facility] Address [address] [place] [address] Care Team Providers Care Copying Machine Repairer Name Role Phone Jacky Kemp MD Primary Care Provider + [phone] Allergies No known active allergies Medications DULoxetine [...] stage from 12/14/2007: cT1c, cN0, cM0, ER-, [place]-, HER2- - Unsigned Social History Tobacco Use Types Packs/Day Years [...] Date Joshua rded Speak language other than Monegasque at home Not on file 05/28/2023 Want [...] Description 06/04/2025 1:15 PM EST Office Visit [facility] - [address] [place] [address] Aaliyah Jimenez MD [address] [place] [address] Insurance [id number] (Home) [address] [place] [address] MEDICARE PART A B Care Teams Copying Machine Repairer Relationship Specialty Start Date End Date Jacky Kemp MD [address] [place] [address] PCP - General Adolescent Medicine 06/09/23
[2024-10-20] MEDS: DENOSUMAB 60 MG/ML SYRINGE SUBCUT (10:55)
[2024-10-20 10:58] VITALS: BP 118/60; PULSE 82; RESP 16; TEMP 36.6; O2SAT 96
== END 2024-10-20 23:59 | disposition home or self-care (01) ==
LOC: INF 10:42
PROVIDERS: PCP Internal Medicine Adolescent Medicine; Visit Provider Internal Medicine Adolescent Medicine
DX: M81.0 Age-related osteoporosis without current pathological fracture (principal)
CPT/HCPCS: 96372; J0897